=== PATIENT | female | born 1945 | race Two or more races ===

== ENCOUNTER 2017-04-15 18:52 | Emergency (ER) | payer OTHER ==
[2017-04-15 18:57] VITALS: BP 154/74; PULSE 120; TEMP 98.7; BMI 24.5
[2017-04-15] MEDS ORDERED: SODIUM CHLORIDE 1,000 ML IV STA (20:41)
--- NOTE | 2017-04-15 20:41 | PDOC ---
History of Present Illness - General Chief Complaint: Urinary Problem Stated Complaint: PAIN, ACUTE Time Seen by Provider: 04/15/17 19:15 Past History - Past Medical History Allergies/Adverse Reactions: Allergies Allergy/AdvReac Type Severity Reaction Status Date / Time aspirin AdvReac Verified 04/15/17 18:57 Home Medications: Ambulatory Orders Aspirin Coated [Ecotrin -] 81 mg PO DAILY 08/08/15 Fluticasone/Salmeterol [Advair 250-50 Diskus] 1 each IH BID 08/08/15 Glipizide [Glipizide Xl] 2.5 mg PO BID 08/08/15 Insulin Aspart [Novolog] 12 unit SQ TID 08/08/15 Insulin Detemir [Levemir Flextouch] 35 unit SQ HS 08/08/15 Linagliptin [Tradjenta] 5 mg PO DAILY 08/08/15 Lisinopril [Prinivil] 20 mg PO DAILY 08/08/15 Metformin HCl [Metformin HCl ER] 1,000 mg PO BID 08/08/15 Metoprolol Succinate [Toprol Xl -] 50 mg PO DAILY 08/08/15 Mirabegron [Myrbetriq] 50 mg PO DAILY 08/08/15 Montelukast Na [Singulair -] 10 mg PO HS 08/08/15 Hyndman-3 Fatty Acids [[place]man-3] 1,000 mg PO BID 08/08/15 Omeprazole [Prilosec (RX)] 40 mg PO DAILY PRN 08/08/15 Tiotropium [place] [Spiriva -] 1 inh PO DAILY 08/08/15 Anemia: No Asthma: Yes Cancer: No Cardiac Disorders: Yes CVA: No COPD: Yes CHF: No Dementia: No Diabetes: Yes GI Disorders: No Disorders: No HTN: Yes Hypercholesterolemia: Yes Liver Disease: No Suicide Attempt (Hx): No Seizures: No Thyroid Disease: No - Surgical History Abdominal Surgery: Yes Appendectomy: Yes Cardiac Surgery: Yes (CABG-2012) Cholecystectomy: No Lung Surgery: No Neurologic Surgery: No Orthopedic Surgery: No - Immunization History Td Vaccination: Yes Immunization Up to Date: Yes - Psycho/Social/Smoking Cessation Hx Suicidal Ideation: No Smoking Status: Yes Smoking History: Never smoked Have you smoked in the past 12 months: No Number of Cigarettes Smoked Daily: 5 If you are a former smoker, when did you quit?: 2YRS AGO Information on smoking cessation initiated: No Hx Alcohol Use: No Drug/Substance Use Hx: No Substance Use Type: None Hx Substance Use Treatment: No *Physical Exam - Vital Signs Last Vital Signs Temp Pulse Resp BP Pulse Ox 98.7 F 120 H 18 154/74 98 04/15/17 18:53 04/15/17 18:53 04/15/17 18:53 04/15/17 18:53 04/15/17 18:53
--- NOTE | 2017-04-15 20:41 | PDOC ---
Attending Attestation - Resident Resident Name: Bess Rain - ED Attending Attestation I have performed the following: I have examined & evaluated the patient, The case was reviewed & discussed with the resident, I agree w/resident's findings & plan, Exceptions are as noted - HPI HPI: 04/15/17 20:43 71 yo female p/w b/l cva tenderness - Physicial Exam PE: 04/16/17 01:58 agree with residents note - Medical Decision Making 04/15/17 23:51 ct scan revealed kidney stone,labs reviewed .pt has UTI,will be placed on antibiotics,also will be given her diabetic meds she has not taken yet today plan pt already has an appt with her PCP tomorrow
[2017-04-15 20:53] LABS: BASOPHIL 0.4 % (0-2.0); EOSINOPHIL 0.2 % (0-4.5); MCH 27.7 pg (25.7-33.7); MCHC 33.2 g/dl (32.0-36.0); MEAN CELL VOLUME 83.3 fl (80-96); MEAN PLT VOLUME 9.3 fl (7.5-11.1); NEUTROPHILS 75.7 % (42.8-82.8); PLATELET COUNT 424 K/MM3 (134-434); RDW 12.6 % (11.6-15.6); WHITE BLOOD COUNT 9.8 K/mm3 (4.0-10.0)
[2017-04-15 21:00] LABS: URINE APPEARANCE CLOUDY; URINE BILIRUBIN NEGATIVE (NEGATIVE); URINE BLOOD 3+ (NEGATIVE); URINE COLOR YELLOW; URINE GLUCOSE (UA) 3+ (NEGATIVE); URINE KETONE NEGATIVE (NEGATIVE); URINE UROBILINOGEN NEGATIVE mg/dL (0.2-1.0)
[2017-04-15 21:07] LABS: URINE LEUK ESTERASE 3+ (NEGATIVE); URINE NITRITE POSITIVE (NEGATIVE); URINE PROTEIN 2+ (NEGATIVE)
[2017-04-15 21:10] LABS: URINE RBC 45 /hpf (0-3); URINE WBC 951 /hpf (3-5)
--- NOTE | 2017-04-15 21:10 | PDOC ---
History of Present Illness - General History Source: Patient Exam Limitations: No Limitations - History of Present Illness Initial Comments: This is a 71 yo female with h/o IDDM (insulin and metformin), IN (3-vessel CABG in 2012), HTN, HLD, COPD, and appendectomy who presents c/o flank pain. The pain started gradually 3 days ago in the left>right back, feels sharp, radiates to the left abdomen, and has been worsening since the onset up to 9/10 pain now. She denies any factors that make the pain better or worse, and has taken only Tylenol for the pain (last dose this morning). She has additionally been having burning on urination and two episodes of blood in the urine yesterday. She notes recent chills, decreased appetite, nausea, dry heaves, and diarrhea. She denies any rashes. She has never had these symptoms before. She also denies any tobacco or drug use, and notes very occasional alcohol use. She notes taking her diabetes medications adherently and occasionally checks her blood sugars at home. The last time she checked it was yesterday, and she states it was about 550. <Bess Rain - Last Filed: 04/15/17 22:39> <Kerry Vegas - Last Filed: 04/16/17 00:21> - General Chief Complaint: Urinary Problem Stated Complaint: PAIN, ACUTE Time Seen by Provider: 04/15/17 19:15 Past History - Past Medical History Anemia: No Asthma: Yes Cancer: No Cardiac Disorders: Yes CVA: No COPD: Yes CHF: No Dementia: No Diabetes: Yes GI Disorders: No Disorders: No HTN: Yes Hypercholesterolemia: Yes Liver Disease: No Suicide Attempt (Hx): No Seizures: No Thyroid Disease: No - Surgical History Abdominal Surgery: Yes Appendectomy: Yes Cardiac Surgery: Yes (CABG-2013) Cholecystectomy: No Lung Surgery: No Neurologic Surgery: No Orthopedic Surgery: No - Immunization History Td Vaccination: Yes Immunization Up to Date: Yes - Psycho/Social/Smoking Cessation Hx Suicidal Ideation: No Smoking Status: Yes Smoking History: Former smoker Have you smoked in the past 12 months: No Number of Cigarettes Smoked Daily: 5 If you are a former smoker, when did you quit?: 2YRS AGO Information on smoking cessation initiated: No Hx Alcohol Use: No Drug/Substance Use Hx: No Substance Use Type: None Hx Substance Use Treatment: No <Bess Rain - Last Filed: 04/15/17 22:39> <Salvatore Vegasa Lindsay - Last Filed: 04/16/17 00:21> - Past Medical History Allergies/Adverse Reactions: Allergies Allergy/AdvReac Type Severity Reaction Status Date / Time aspirin AdvReac Verified 04/15/17 18:57 Home Medications: Ambulatory Orders Glipizide [Glipizide Xl] 2.5 mg PO BID 08/08/15 Lisinopril [Prinivil] 20 mg PO DAILY 08/08/15 Metformin HCl [Metformin HCl ER] 1,000 mg PO BID 08/08/15 Metoprolol Succinate [Toprol Xl -] 50 mg PO DAILY 08/08/15 Montelukast Na [Singulair -] 10 mg PO HS 08/08/15 Proventil HFA Inhaler - 04/15/17 Tiotropium [place] [Spiriva] 04/15/17 Cephalexin [Keflex] 500 mg PO QID #30 capsule 04/16/17 Cephalexin [Keflex] 500 mg PO QID 7 Days 04/16/17 Oxycodone HCl/Acetaminophen [Percocet 5-325 mg Tablet] 1 tab PO Q6H PRN #4 tablet MDD 4 04/16/17 Tamsulosin HCl [Flomax] 0.4 mg PO DAILY #7 cap.er.24h 04/16/17 Review of Systems - Review of Systems Constitutional: Yes: Loss of Appetite. No: Unexplained wgt Loss HEENTM: No: Nose Congestion, Throat Pain Respiratory: Yes: Cough (chronic). No: Shortness of Breath Cardiac (ROS): No: Chest Pain, Palpitations ABD/GI: Yes: Diarrhea, Nausea, Other (dry heaves). No: Constipated : Yes: Burning, Dysuria, Flank Pain, Hematuria Musculoskeletal: No: Muscle Weakness, Neck Pain Integumentary: No: Bruising, Rash Neurological: No: Headache, Numbness, Tingling, Weakness, Dizziness Endocrine: No: Unexplained Weight Gain, Unexplained Weight Loss <Bess Rain - Last Filed: 04/15/17 22:39> *Physical Exam - Vital Signs Last Vital Signs Temp Pulse Resp BP Pulse Ox 98.7 F 120 H 18 154/74 98 04/15/17 18:53 04/15/17 18:53 04/15/17 18:53 04/15/17 18:53 04/15/17 18:53 - Physical Exam General Appearance: Yes: Nourished, Appropriately Dressed, Mild Distress, Other (pleasant older woman) HEENT: positive: EOMI, Normal Voice, Hearing Grossly Normal. negative: Scleral Icterus (R), Scleral Icterus (L), Nasal Congestion Neck: positive: Trachea midline, Supple. negative: Tender, Rigid Respiratory/Chest: positive: Lungs Clear, Normal Breath Sounds. negative: Respiratory Distress, Crackles, Rhonchi, Stridor, Wheezing Cardiovascular: positive: Regular Rhythm, Tachycardia, Other (midline sternotomy scar) Gastrointestinal/Abdominal: positive: Normal Bowel Sounds, Tender (mild diffuse tenderness to palpation), Soft, Distended. negative: Organomegaly, Pulsatile Mass, Guarding, Rebound Musculoskeletal: positive: Normal Inspection, CVA Tenderness (left>right). negative: Decreased Range of Motion, Vertebral Tenderness Extremity: positive: Normal Capillary Refill, Normal Inspection, Normal Range of Motion. negative: Tender, Cyanosis Integumentary: positive: Normal Color, Dry, Warm. negative: Erythema, Rash, Bruising Neurologic: positive: business liaison manager II-XII NML intact (grossly), Fully Oriented, Alert, Normal Mood/Affect, Normal Response, Motor Strength 5/5 <Bess Rain - Last Filed: 04/15/17 22:39> - Vital Signs Last Vital Signs Temp Pulse Resp BP Pulse Ox 98.7 F 120 H 18 154/74 98 04/15/17 18:53 04/15/17 18:53 04/15/17 18:53 04/15/17 18:53 04/15/17 18:53 <Kerry Vegas - Last Filed: 04/16/17 00:21> Heart Score/ECG Review - History History: Slightly suspicious - Electrocardiogram EKG: Normal - Age Age: >/= 65 - Risk Factors Risk Factors Heart Score: Yes Hx Hypercholesterolemia, Yes Hx Hypertension, Yes Hx Diabetes Based on the list above the patient has:: >/=3 risk factors or Hx atherosclerotic disease <Bess Rain - Last Filed: 04/15/17 22:39> ED Treatment Course - LABORATORY CBC & Chemistry Diagram: 04/15/17 20:45 04/15/17 20:45 - ADDITIONAL ORDERS Additional order review: 04/15/17 20:45 RBC 4.63 MCV 83.3 MCHC 33.2 RDW 12.6 MPV 9.3 Neutrophils % 75.7 D Lymphocytes % 16.2 D Monocytes % 7.5 Eosinophils % 0.2 D Basophils % 0.4 <Bess Rain - Last Filed: 04/15/17 22:39> - LABORATORY CBC & Chemistry Diagram: 04/15/17 20:45 04/15/17 20:45 - ADDITIONAL ORDERS Additional order review: Laboratory Results 04/16/17 04/15/17 04/15/17 00:02 21:30 20:45 Sodium Potassium Chloride Carbon Dioxide Anion Gap BUN Creatinine Creat Clearance w eGFR POC Glucometer > 400 Random Glucose Calcium Total Bilirubin AST ALT Alkaline Phosphatase Creatine Kinase Troponin I Total Protein Albumin Lipase 302 Urine Color Urine Appearance Urine pH Ur Specific [place] Urine Protein Urine Glucose (UA) Urine Ketones Urine Blood Urine Nitrite Urine Bilirubin Urine Urobilinogen Ur Leukocyte Esterase Urine RBC Urine WBC Ur Epithelial Cells Urine Crystals Urine Bacteria Acetone, Qual Negative L 04/15/17 04/15/17 04/15/17 20:45 20:45 20:45 Sodium 129 L Potassium 5.1 Chloride 94 L Carbon Dioxide 26 Anion Gap 9 BUN 17 Creatinine 1.3 H Creat Clearance w eGFR 40.49 POC Glucometer Random Glucose 484 H* D Calcium 10.5 H Total Bilirubin 0.5 D AST 6 L D ALT 15 D Alkaline Phosphatase 180 H D Creatine Kinase 55 Troponin I < 0.02 Total Protein 8.5 H Albumin 4.3 Lipase Urine Color Yellow Urine Appearance Cloudy Urine pH 5.0 Ur Specific [place] 1.010 Urine Protein 2+ H D Urine Glucose (UA) 3+ H Urine Ketones Negative Urine Blood 3+ H Urine Nitrite Positive D Urine Bilirubin Negative Urine Urobilinogen Negative Ur Leukocyte Esterase 3+ H D Urine RBC 45 Urine WBC 951 Ur Epithelial Cells 1 Urine Crystals Rare Urine Bacteria Many Acetone, Qual 04/16/17 04/15/17 00:02 20:45 RBC 4.63 MCV 83.3 MCHC 33.2 RDW 12.6 MPV 9.3 Neutrophils % 75.7 D Lymphocytes % 16.2 D Monocytes % 7.5 Eosinophils % 0.2 D Basophils % 0.4 POC Glucometer > 400 - Medications Given in the ED: ED Medications Discontinued Medications Generic Name Dose Route Start Last Admin Trade Name Dayday PRN Reason Stop Dose Admin Cephalexin HCl 500 mg 04/15/17 23:48 04/16/17 00:04 Keflex - PO 04/15/17 23:49 500 mg ONCE ONE Administration Sodium Chloride 1,000 mls @ 1,000 mls/hr 04/15/17 20:41 04/15/17 20:53 Normal Saline - IV 04/15/17 21:40 1,000 mls/hr ASDIR STA Administration Morphine Sulfate 2 mg 04/15/17 21:19 04/15/17 21:41 Morphine Injection - IVPUSH 04/15/17 21:20 2 mg ONCE ONE Administration Tamsulosin HCl 0.4 mg 04/15/17 23:48 04/16/17 00:04 Flomax - PO 04/15/17 23:49 0.4 mg ONCE ONE Administration <Kerry Vegas - Last Filed: 04/16/17 00:21> Medical Decision Making - Medical Decision Making 71 yo female with h/o IDDM, [place] with 3-vessel CABG, HTN, HLD, COPD, appendectomy , pelvic sling ~8 months ago. P/W L>R flank pain radiating to abdomen, also dysuria, nausea, dry heaves, chills. Exam with L>R CVA tenderness and diffuse abdominal tenderness, no peritoneal signs DDX includes UTI, pyelonephritis, renal stone, diverticulitis, gastroenteritis. Unlikely to be aortic dissection or AAA expansion. Ordered are UA+cx, CBC, CMP, lipase, acetone, CT abdomen/pelvis. Morphine ordered for pain control. 04/15/17 22:07 UA shows significant e/o infection. CBC without WBC elevation. CMP with BG 484, Cr 1.3 which was this high at a prior visit, alk phos 180. Lipase and acetone negative. <Bess Rain - Last Filed: 04/15/17 22:39> *DC/Admit/Observation/Transfer - Discharge Dispostion Admit: No <Bess Rain - Last Filed: 04/15/17 22:39> <Kerry Vegas - Last Filed: 04/16/17 00:21> Diagnosis at time of Disposition: Renal stone Urinary tract infection Qualifiers: Urinary tract infection type: acute cystitis Hematuria presence: with hematuria Qualified Code(s): N30.01 - Acute cystitis with hematuria - Discharge Dispostion Disposition: HOME Condition at time of disposition: Stable - Prescriptions Prescriptions: Tamsulosin HCl [Flomax] 0.4 mg PO DAILY #7 cap.er.24h Cephalexin [Keflex] 500 mg PO QID 7 Days Cephalexin [Keflex] 500 mg PO QID #30 capsule Oxycodone HCl/Acetaminophen [Percocet 5-325 mg Tablet] 1 tab PO Q6H PRN #4 tablet MDD 4 PRN Reason: Severe Pain - Referrals Referrals: Nahomi Carter MD [Primary Care Provider] - - Patient Instructions Printed Discharge Instructions: DI for Urinary Tract Infection (UTI) Additional Instructions: Morales visto en la rigoberto emergencia por dolor de abdomino y espalda. El dolor se mejoro con morphina aqui en el departamento. Hicemos unos laboratorios de marichuy y orina, y los resultados dicen que tiene tim infeccion de la orina. Por favor marie las pastillas antibioticas. Si tiene dolor, por favor marie Tylenol. Por favor vayase a landen chirinos doctor primario manana, o regresa a la rigoberto emergencia si tiene fiebre, gordo vomita, sintomas peores, or nuevas sintomas.
[2017-04-15 21:11] LABS: URINE BACTERIA MANY /hpf (NONE SEEN)
[2017-04-15] MEDS ORDERED: morphine CARPU-JECT 4 MG/1 ML DISP.SYRIN IVPUSH ONE (21:19)
[2017-04-15 21:27] LABS: CPK 55 IU/L (26-192); TROPONIN I < 0.02 ng/ml (0.00-0.05)
[2017-04-15 21:28] LABS: ALBUMIN 4.3 g/dl (3.4-5.0); ANION GAP 9 (8-16); BILIRUBIN,TOTAL 0.5 mg/dL (0.2-1.0); CALCIUM 10.5 mg/dL (8.5-10.1); CO2 26 mmol/L (21-32); CREATININE 1.3 mg/dL (0.55-1.02); SGOT/AST 6 U/L (15-37); SGPT/ALT 15 U/L (12-78); TOT PROT 8.5 g/dl (6.4-8.2)
[2017-04-15 21:29] LABS: ALK PHOS 180 U/L (45-117)
[2017-04-15 21:30] LABS: GLUCOSE,RANDOM 484 mg/dL (74-106)
[2017-04-15] MEDS ORDERED: morphine CARPU-JECT 4 MG/1 ML DISP.SYRIN ONE (21:39)
[2017-04-15] MEDS ORDERED: TAMSULOSIN HCL 0.4 MG CAP.ER.24H (FP) PO ONE (23:48)
[2017-04-15] MEDS ORDERED: CEPHALEXIN MONOHYDRATE 500 MG CAPSULE (UD) PO ONE (23:48)
[2017-04-16] MEDS ORDERED: CEPHALEXIN MONOHYDRATE 250 MG CAPSULE (FP) ONE (00:01)
[2017-04-16] MEDS ORDERED: TAMSULOSIN HCL 0.4 MG CAP.ER.24H (FP) ONE (00:02)
--- NOTE | 2017-04-16 13:51 | EKG ---
Test Reason : Blood Pressure : / mmHG Vent. Rate : 111 BPM Atrial Rate : 111 BPM P-R Int : 122 ms QRS Dur : 070 ms QT Int : 304 ms P-R-T Axes : 064 020 081 degrees QTc Int : 413 ms SINUS TACHYCARDIA LEFT ATRIAL ENLARGEMENT WHEN COMPARED WITH ECG OF 24-MAY-2015 23:46, NO SIGNIFICANT CHANGE WAS FOUND REPEAT EKG IF CLINICALLY INDICATED Confirmed by SANTOS NDIAYE MD ([id number]) on 04/16/2017 1:51:10 PM Referred By: Confirmed By:SANTOS NDIAYE MD
== END 2017-04-16 00:35 | disposition home or self-care (01) ==
LOC: JER 18:52
PROC: 3E033NZ Introduction of Analgesics, Hypnotics, Sedatives into Peripheral Vein, Percutaneous Approach (ICD-10-PCS; principal; 2017-04-15)
PROC: 3E0337Z Introduction of Electrolytic and Water Balance Substance into Peripheral Vein, Percutaneous Approach (ICD-10-PCS; 2017-04-15)
DX: N20.0 Calculus of kidney (principal); N30.01 Acute cystitis with hematuria; I10 Essential (primary) hypertension; I25.2 Old myocardial infarction; E78.5 Hyperlipidemia, unspecified; E11.9 Type 2 diabetes mellitus without complications; J44.9 Chronic obstructive pulmonary disease, unspecified; Z79.4 Long term (current) use of insulin; Z79.84 Long term (current) use of oral hypoglycemic drugs; Z95.1 Presence of aortocoronary bypass graft; Z87.891 Personal history of nicotine dependence
CPT/HCPCS: 36415; 74176-TC; 80053; 81003; 81015; 82009; 83690; 84484; 85025; 87086; 87186; 93005; 93010; 96361; 96374; 99282-25

== ENCOUNTER 2017-11-05 09:57 | Emergency (ER) | payer OTHER ==
[2017-11-05 10:03] VITALS: BP 153/72; PULSE 90; TEMP 98.4; BMI 27.6
[2017-11-05] MEDS ORDERED: SULFAMETHOXAZOLE/TRIMETHOPRIM 800MG/160MG D.S. TABLET PO ONE (11:02)
--- NOTE | 2017-11-05 11:03 | PDOC ---
History of Present Illness - General Chief Complaint: Abscess Boil Stated Complaint: ABSCESS BOIL (BACK PROBLEM) Time Seen by Provider: 11/05/17 10:57 History Source: Patient Exam Limitations: No Limitations - History of Present Illness Initial Comments: 11/05/17 10:57 Patient states had onset of swelling and tender lesion to her right upper back that started a few days ago. States multiple family members suffer from MRSA lesions but she has never had an incident herself. Timing/Duration: reports: getting worse Severity: Yes: mild, moderate Location: reports: torso Respiratory Risk Factors: reports: no cause identified Past History - Travel Traveled outside of the country in the last 30 days: No Close contact w/someone who was outside of country & ill: No - Past Medical History Allergies/Adverse Reactions: Allergies Allergy/AdvReac Type Severity Reaction Status Date / Time milk Allergy Verified 11/05/17 10:03 aspirin AdvReac Verified 11/05/17 10:00 Home Medications: Ambulatory Orders Glipizide [Glipizide Xl] 2.5 mg PO BID 08/08/15 Lisinopril [Prinivil] 20 mg PO DAILY 08/08/15 Metformin HCl [Metformin HCl ER] 1,000 mg PO BID 08/08/15 Metoprolol Succinate [Toprol Xl -] 50 mg PO DAILY 08/08/15 Montelukast Na [Singulair -] 10 mg PO HS 08/08/15 Tiotropium [place] [Spiriva] 04/15/17 Chlorhexidine Gluconate [Hibiclens For Decolonization -] 1 applic TP DAILY #1 bottle 11/05/17 Cilostazol 100 mg PO ASDIR 11/05/17 Icosapent Ethyl [Vascepa] 16 gm PO 11/05/17 Insulin Lispro [Humalog] 100 unit SQ 11/05/17 Sulfamethoxazole/Trimethoprim [Bactrim *Ds*] 1 each PO BID #14 tablet 11/05/17 Valsartan [Diovan] 160 mg PO DAILY 11/05/17 Anemia: No Asthma: Yes Cancer: No Cardiac Disorders: Yes (CAD) CVA: No COPD: Yes CHF: No Dementia: No Diabetes: Yes GI Disorders: No Disorders: No HTN: Yes Hypercholesterolemia: Yes Liver Disease: No Seizures: No Thyroid Disease: No - Surgical History Abdominal Surgery: Yes (OVARY REMOVED, SBO) Appendectomy: Yes Cardiac Surgery: Yes (CABG-2013) Cholecystectomy: No Lung Surgery: No Neurologic Surgery: No Orthopedic Surgery: No - Immunization History Td Vaccination: Yes Immunization Up to Date: Yes - Suicide/Smoking/Psychosocial Hx Smoking Status: Yes Smoking History: Former smoker Have you smoked in the past 12 months: No Number of Cigarettes Smoked Daily: 5 If you are a former smoker, when did you quit?: 2YRS AGO Information on smoking cessation initiated: No Hx Alcohol Use: No Drug/Substance Use Hx: No Substance Use Type: None Hx Substance Use Treatment: No Review of Systems - Review of Systems Able to Perform ROS?: Yes Is the patient limited Gambian proficient: Yes Constitutional: Yes: Symptoms Reported, See HPI, Malaise HEENTM: No: Symptoms Reported Respiratory: No: Symptoms reported Musculoskeletal: Yes: See HPI. No: Symptoms Reported, Back Pain Integumentary: Yes: Symptoms Reported, See HPI, Lesions All Other Systems: Reviewed and Negative *Physical Exam - Vital Signs Last Vital Signs Temp Pulse Resp BP Pulse Ox 98.4 F 90 18 153/72 100 11/05/17 10:01 11/05/17 10:01 11/05/17 10:01 11/05/17 10:01 11/05/17 10:01 - Physical Exam General Appearance: Yes: Nourished, Appropriately Dressed, Apparent Distress HEENT: positive: KALE, Normal ENT Inspection, TMs Normal, Pharynx Normal Neck: positive: Supple, Lymphadenopathy (R), Lymphadenopathy (L) Respiratory/Chest: positive: Lungs Clear, Normal Breath Sounds Gastrointestinal/Abdominal: positive: Soft Integumentary: positive: Other (4 cm lesion midpoint right back scapula that is tender and fluctuant) Neurologic: positive: mill attendant II-XII NML intact, Fully Oriented, Alert, Normal Mood/ Affect, Normal Response, Motor Strength 5/5 Procedures - Incision and Drainage I&D Site: Right: Torso Anesthesia: 1% Lidocaine Blade Size: 11 Iodinated Packin/4 in Complications: none Dressing: Yes Progress Note - Progress Note Progress Note: Abscess incised and drained, we'll start on Bactrim *DC/Admit/Observation/Transfer Diagnosis at time of Disposition: Abscess - Discharge Dispostion Disposition: HOME Condition at time of disposition: Stable Admit: No - Prescriptions Prescriptions: Chlorhexidine Gluconate [Hibiclens For Decolonization -] 1 applic TP DAILY #1 bottle Sulfamethoxazole/Trimethoprim [Bactrim *Ds*] 1 each PO BID #14 tablet - Referrals Referrals: Nahomi Carter MD [Primary Care Provider] - - Patient Instructions Printed Discharge Instructions: DI for Incision and Drainage of a Skin Abscess Additional Instructions: Mefoxin resistant Staphylococcus aureus is a normal skin bacteria and is mutated to be resistant to penicillin type drugs. The wounds may be draining and there for contagious to other family members. Vigorous handwashing and avoidance of skin contact of draining lesions it is important . All family members Will need to be protected and perform thorough cleaning of linens /towels/clothing. To decontaminate household: Soak in bath; in one half cup of bleach in 1 full tub of water 2 times a week x3 weeks With own scrub Nylon use chlorohexidine soap twice a week to decontaminate skin Clean tub /toilet with bleach wipes after each use Do not use same linens/avoid contact until lesions are healed Followup with private physician/title clerk automobile Take all of Bactrim as directed May use ibuprofen or Tylenol for pain relief Followup with PMD in one week if no resolution Make appointment with title clerk automobile for evaluation when possible - Post Discharge Activity
[2017-11-05] MEDS ORDERED: SULFAMETHOXAZOLE/TRIMETHOPRIM 800MG/160MG D.S. TABLET ONE (11:22)
== END 2017-11-05 11:39 | disposition home or self-care (01) ==
LOC: JERFT 09:57
PROC: 0J970ZZ Drainage of Back Subcutaneous Tissue and Fascia, Open Approach (ICD-10-PCS; principal; 2017-11-05)
DX: L02.212 Cutaneous abscess of back [any part, except buttock and flank] (principal); I25.10 Atherosclerotic heart disease of native coronary artery without angina pectoris; I10 Essential (primary) hypertension; Z95.1 Presence of aortocoronary bypass graft; Z87.891 Personal history of nicotine dependence; J45.909 Unspecified asthma, uncomplicated; J44.9 Chronic obstructive pulmonary disease, unspecified; E78.00 Pure hypercholesterolemia, unspecified; E11.9 Type 2 diabetes mellitus without complications; Z79.84 Long term (current) use of oral hypoglycemic drugs
CPT/HCPCS: 10060; 87070; 87077; 87205; 99281-25

== ENCOUNTER 2018-08-15 11:07 | Observation (INO) | payer OTHER ==
[2018-08-15 11:17] VITALS: BMI 26.4
--- NOTE | 2018-08-15 12:10 | PDOC ---
History of Present Illness - General Chief Complaint: Pain Stated Complaint: CHEST PAIN History Source: Patient Exam Limitations: No Limitations - History of Present Illness Initial Comments: 08/15/18 15:10 73 yo F with a hx of CAD s/p CABG 2012 (revision of sternotomy 2017), DM, COPD, HLD, and HTN presents to the emergency department with chest pain. She states the chest pain has been ongoing for 3 weeks but acutely worsened yesterday. Located on the right chest wall, 10/10, sharp, worsens with deep breaths and coughs, constant, and is non-radiating. Per the patient, she has associative nausea, SOB, and back pain but denies diaphoresis, worsening pain with exertion. She is followed by Dr. Haas. She denies anticoagulation use but endorses aspirin 81 mg daily. Social: Denies tobacco, alcohol, and substance abuse Past History - Past Medical History Allergies/Adverse Reactions: Allergies Allergy/AdvReac Type Severity Reaction Status Date / Time milk Allergy Verified 08/15/18 11:13 aspirin AdvReac Verified 08/15/18 11:13 Home Medications: Ambulatory Orders Glipizide [Glipizide Xl] 2.5 mg PO BID 08/08/15 Lisinopril [Prinivil] 20 mg PO DAILY 08/08/15 Metformin HCl [Metformin HCl ER] 1,000 mg PO BID 08/08/15 Metoprolol Succinate [Toprol Xl -] 50 mg PO DAILY 08/08/15 Montelukast Na [Singulair -] 10 mg PO HS 08/08/15 Tiotropium [place] [Spiriva] 18 mcg PO DAILY 04/15/17 Cilostazol 100 mg PO ASDIR 11/05/17 Sulfamethoxazole/Trimethoprim [Bactrim *Ds*] 1 each PO BID #14 tablet 11/05/17 Valsartan [Diovan] 160 mg PO DAILY 11/05/17 Anemia: No Asthma: Yes Cancer: No Cardiac Disorders: Yes (CAD) CVA: No COPD: Yes CHF: No Dementia: No Diabetes: Yes GI Disorders: No Disorders: No HTN: Yes Hypercholesterolemia: Yes Liver Disease: No Seizures: No Thyroid Disease: No - Surgical History Abdominal Surgery: Yes (OVARY REMOVED, SBO) Appendectomy: Yes Cardiac Surgery: Yes (CABG-2012) Cholecystectomy: No Lung Surgery: No Neurologic Surgery: No Orthopedic Surgery: No - Immunization History Td Vaccination: Yes Immunization Up to Date: Yes - Suicide/Smoking/Psychosocial Hx Smoking Status: Yes Smoking History: Never smoked Have you smoked in the past 12 months: No Number of Cigarettes Smoked Daily: 5 If you are a former smoker, when did you quit?: 2YRS AGO Hx Alcohol Use: No Drug/Substance Use Hx: No Substance Use Type: None Hx Substance Use Treatment: No *Physical Exam - Vital Signs Last Vital Signs Temp Pulse Resp BP Pulse Ox 98.2 F 85 18 143/68 100 08/15/18 11:15 08/15/18 11:15 08/15/18 11:15 08/15/18 11:15 08/15/18 11:15 Moderate Sedation - Procedure Monitoring Vital Signs: Procedure Monitoring Vital Signs Temperature 98.2 F 08/15/18 11:15 Pulse Rate 85 08/15/18 11:15 Respiratory Rate 18 08/15/18 11:15 Blood Pressure 143/68 08/15/18 11:15 O2 Sat by Pulse Oximetry (%) 100 08/15/18 11:15 ED Treatment Course - LABORATORY CBC & Chemistry Diagram: 08/15/18 14:20 08/15/18 14:20 *DC/Admit/Observation/Transfer - Referrals Referrals: Nahomi Carter MD [Primary Care Provider] - - Patient Instructions - Post Discharge Activity
--- NOTE | 2018-08-15 12:39 | PDOC ---
Attending Attestation - Resident Resident Name: ReedNixon - ED Attending Attestation I have performed the following: I have examined & evaluated the patient, The case was reviewed & discussed with the resident, I agree w/resident's findings & plan, Exceptions are as noted - HPI HPI: 08/15/18 12:34 73 yo F wit h/o cad, htn hld cabg ( 2 yrs ago) here today with c/o pain right sided chest for 3 weeks. intermittent. has also had a cough, nonproductive. does have post tussive emesis yesterday. no f/c no leg swelling. here today because pain is more severe and more frequent . no f/c no leg swelling. no other comlaints. - Physicial Exam PE: 08/15/18 12:36 awake alert lungs with faint crackles left side, no wheezing. heart no appreciated murmurs r or g. abd soft nt nd. ext wwp no edema. no calf tenderness. 2 + dp/ pt pulses bilaterally. - Medical Decision Making 08/15/18 12:38 73 yo F h/o copd cabg ht hld here with c/o chest pain. differential acs, pna, effusion chf copd exacerbation. plna cxr ek labs trop nitro for ongoing chest pain. pt has had 2 ekg in dept, unremarkable. nonspecific findings I, AVL , v5, v6. 08/15/18 13:07 pt states she is not allergic to aspirin, take every day took baby asa earlier today. just occasionally upsets her stomach. Heart Score/ECG Review #1 ECG reviewed & interpreted by me at: 12:39 General ECG Interpretation: Sinus Rhythm, Normal Rate, Normal Intervals, No acute ischemic changes Compared to previous ECG there are: Other (TWI I, AVL)
[2018-08-15] MEDS ORDERED: NITROGLYCERIN SUBLINGUAL 1/150 0.4 MG TAB SL ONE (13:05)
[2018-08-15] MEDS ORDERED: ASPIRIN 81 MG CHEWABLE TABLETS PO ONE (13:06)
[2018-08-15] MEDS ORDERED: ASPIRIN COATED 81 MG TABLET.EC ONE (14:27)
[2018-08-15] MEDS ORDERED: NITROGLYCERIN SUBLINGUAL 1/150 0.4 MG TAB ONE (14:28)
[2018-08-15 14:36] LABS: BASO % 0.4 % (0-2.0); HEMATOCRIT 36.5 % (32.4-45.2); HEMOGLOBIN 11.7 GM/dL (10.7-15.3); LYMPH % 34.3 % (8-40); MCH 27.2 pg (25.7-33.7); MEAN CELL VOLUME 84.9 fl (80-96); MEAN PLT VOLUME 8.6 fl (7.5-11.1); MONO % 6.7 % (3.8-10.2); NEUT % 56.6 % (42.8-82.8); PLATELET COUNT 367 K/MM3 (134-434); RDW 13.6 % (11.6-15.6)
[2018-08-15 14:51] LABS: ALBUMIN 4.2 g/dl (3.4-5.0); ALK PHOS 91 U/L (45-117); ANION GAP 7 MMOL/L (8-16); BILIRUBIN,TOTAL 0.4 mg/dL (0.2-1); BLOOD UREA NITROGEN 31 mg/dL (7-18); CALCIUM 9.6 mg/dL (8.5-10.1); CHLORIDE 107 mmol/L (98-107); CO2 27 mmol/L (21-32); CREATININE 1.4 mg/dL (0.55-1.3); GLUCOSE,RANDOM 283 mg/dL (74-106); POTASSIUM 5.4 mmol/L (3.5-5.1); SGOT/AST 12 U/L (15-37); SGPT/ALT 21 U/L (13-61); SODIUM 140 mmol/L (136-145); TOT PROT 7.9 g/dl (6.4-8.2)
[2018-08-15 15:14] LABS: INR 1.09 (0.83-1.09); PROTHROMBIN TIME (PATIENT) 12.9 SEC (9.7-13.0)
[2018-08-15 15:17] LABS: ACTIVATED PTT 25.1 SECONDS (25.2-36.5)
[2018-08-15] MEDS ORDERED: CILOSTAZOL 100 MG TABLET PO SCH (16:30)
[2018-08-15] MEDS ORDERED: SODIUM CHLORIDE 1,000 ML IV SCH ×2 (16:30→17:30)
[2018-08-15] MEDS ORDERED: ACETAMINOPHEN 325 MG TABLET (FP) PO SCH (16:30)
--- NOTE | 2018-08-15 16:31 | HP ---
CHIEF COMPLAINT:chest pain with breathing. PCP: Television Announcer: Dr. Haas. HISTORY OF PRESENT ILLNESS: 73 yo F with 3 day history of worsening chest pain. She describes intermittent right chest wall pain made worse with deep inspiration. No alleviating factors. Aggravated by palpation, movement and deep inspiration. Pain is not associated with activity or diaphoresis. After CABG in 2012 she had chronic cough with CARMEN and had problems with sternotomy she went this summer for revision. Since that time this pain has been presents but has gotten acutely worse in past few days as cough had returned. She blames cough on post nasal drip that is chronic. She follow with Dr. Haas as outpatient. Last seen one month prior and no acute issues. She denies SANCHEZ, SOB, abdominal pain, fever, chills, nausea or vomiting. No recent illness. ER course was notable for: (1)ASA given (2)EKG shows NSR with no st or t wave abnormalities (3) Recent Travel:denies PAST MEDICAL HISTORY:HTN, HLD, NIDDM, CAD PAST SURGICAL HISTORY:CABG (2012) , sternotomy revision (march 2018) , Social History: Smoking:quit 2012 Alcohol:denies Drugs: denies Family History: father(RIVERA) of trauma Allergies milk Allergy (Verified 08/15/18 11:13) aspirin Adverse Reaction (Verified 08/15/18 11:13) UPSET STOMACH HOME MEDICATIONS: Home Medications Medication Instructions Recorded Glipizide [Glipizide Xl] 2.5 mg PO BID 08/08/15 Lisinopril [Prinivil] 20 mg PO DAILY 08/08/15 Metformin HCl [Metformin HCl ER] 1,000 mg PO BID 08/08/15 Metoprolol Succinate [Toprol Xl -] 50 mg PO DAILY 08/08/15 Montelukast Na [Singulair -] 10 mg PO HS 08/08/15 Tiotropium [place] [Spiriva] 18 mcg PO DAILY 04/15/17 Cilostazol 100 mg PO ASDIR 11/05/17 Sulfamethoxazole/Trimethoprim 1 each PO BID #14 tablet 11/05/17 [Bactrim *Ds*] Valsartan [Diovan] 160 mg PO DAILY 11/05/17 REVIEW OF SYSTEMS CONSTITUTIONAL: Absent: fever, chills, diaphoresis, generalized weakness, malaise, loss of appetite, weight change HEENT: Absent: rhinorrhea, nasal congestion, throat pain, throat swelling, difficulty swallowing, mouth swelling, ear pain, eye pain, visual changes CARDIOVASCULAR: chest pain Absent: , syncope, palpitations, irregular heart rate, lightheadedness, peripheral edema RESPIRATORY: Absent: cough, shortness of breath, dyspnea with exertion, orthopnea, wheezing, stridor, hemoptysis GASTROINTESTINAL: Absent: abdominal pain, abdominal distension, nausea, vomiting, diarrhea, constipation, melena, hematochezia GENITOURINARY: Absent: dysuria, frequency, urgency, hesitancy, hematuria, flank pain, genital pain MUSCULOSKELETAL: Absent: myalgia, arthralgia, joint swelling, back pain, neck pain SKIN: Absent: rash, itching, pallor HEMATOLOGIC/IMMUNOLOGIC: Absent: easy bleeding, easy bruising, lymphadenopathy, frequent infections ENDOCRINE: Absent: unexplained weight gain, unexplained weight loss, heat intolerance, cold intolerance NEUROLOGIC: Absent: headache, focal weakness or paresthesias, dizziness, unsteady gait, seizure, mental status changes, bladder or bowel incontinence PSYCHIATRIC: Absent: anxiety, depression, suicidal or homicidal ideation, hallucinations. PHYSICAL EXAMINATION Vital Signs - 24 hr 08/15/18 08/15/18 08/15/18 11:15 14:10 15:02 Temperature 98.2 F 98.7 F Pulse Rate 85 Pulse Rate [ 62 Left Radial] Respiratory 18 16 Rate Blood Pressure 143/68 Blood Pressure 137/55 L [Right Arm] O2 Sat by Pulse 100 99 99 Oximetry (%) GENERAL: AAOx3, NAD HEAD:NCAT EYES: PERRLA, EOMI, sclera anicteric, conjunctiva clear. No lid lag. EARS, NOSE, THROAT: Moist mucous membranes. NECK: Supple without lymphadenopathy, JVD, or masses. LUNGS: Diminished BS bilaterally. No wheezes, and no crackles. No accessory muscle use. HEART:RRR, normal S1 and S2 2/6 [place] RSB. Right chest wall tenderness to palpation. ABDOMEN: Soft, NTND, NABS, no guarding, no rebound, no masses. No hepatomegaly or splenomegaly. MUSCULOSKELETAL: Normal range of motion at all joints. No bony deformities or tenderness. No CVA tenderness. UPPER EXTREMITIES: 2+ pulses, warm, well-perfused. No cyanosis. No clubbing. No peripheral edema. LOWER EXTREMITIES: 2+ pulses, warm, well-perfused. No calf tenderness. No peripheral edema. NEUROLOGICAL: Cranial nerves II-XII intact. Normal speech. no focal def. PSYCHIATRIC: Cooperative. Good eye contact. Appropriate mood and affect. SKIN: Warm, dry, normal turgor, no rashes or lesions noted, normal capillary refill. Laboratory Results - last 24 hr 08/15/18 08/15/18 08/15/18 14:15 14:20 14:20 WBC 7.0 RBC 4.30 Hgb 11.7 Hct 36.5 MCV 84.9 MCH 27.2 MCHC 32.0 RDW 13.6 Plt Count 367 MPV 8.6 Absolute Neuts (auto) 4.0 Neutrophils % 56.6 D Lymphocytes % 34.3 D Monocytes % 6.7 Eosinophils % 2.0 D Basophils % 0.4 Nucleated RBC % 0 PT with INR 12.90 INR 1.09 PTT (Actin FS) 25.1 L Sodium Potassium Chloride Carbon Dioxide Anion Gap BUN Creatinine Creat Clearance w eGFR Random Glucose Calcium Total Bilirubin AST ALT Alkaline Phosphatase Creatine Kinase Troponin I B-Natriuretic Peptide Total Protein Albumin Blood Type A POSITIVE Antibody Screen Negative 08/15/18 08/15/18 14:20 14:20 WBC RBC Hgb Hct MCV MCH MCHC RDW Plt Count MPV Absolute Neuts (auto) Neutrophils % Lymphocytes % Monocytes % Eosinophils % Basophils % Nucleated RBC % PT with INR INR PTT (Actin FS) Sodium 140 Potassium 5.4 H Chloride 107 Carbon Dioxide 27 Anion Gap 7 L BUN 31 H Creatinine 1.4 H Creat Clearance w eGFR 36.96 Random Glucose 283 H Calcium 9.6 Total Bilirubin 0.4 AST 12 L ALT 21 Alkaline Phosphatase 91 Creatine Kinase 104 Troponin I < 0.02 B-Natriuretic Peptide 327.0 H Total Protein 7.9 Albumin 4.2 Blood Type Antibody Screen ASSESSMENT/PLAN: Problem List - Problem (1) Chest pain Assessment/Plan: will r/o ACS but most likely MS as pain is reproducible with palpation. * Placed on observation to telemetry * Cardiology consult * Trend trops Q6H * Echo pending. * Repeat EKG in AM (2) DM2 (diabetes mellitus, type 2) Assessment/Plan: * ADA sodium controlled diet * BGM ACHS * ISS ACHS (3) HTN (hypertension) Assessment/Plan: ARB held for LACHELLE * Metoprolol Succinate (Toprol Xl -) 50 mg PO DAILY (4) HLD (hyperlipidemia) (5) CAD (coronary artery disease) Assessment/Plan: she endorses taking ASA * ACS work up pending. * Cardiology consulted/ (6) CKD (chronic kidney disease) stage 3, GFR 30-59 ml/min Assessment/Plan: ARB held * WIll repeat labs in AM Visit type - Emergency Visit Emergency Visit: Yes Care time: The patient presented to the Emergency Department on the above date and was hospitalized for further evaluation of their emergent condition. - New Patient This patient is new to me today: Yes Date on this admission: 08/15/18 - Critical Care Critical Care patient: No
[2018-08-15] MEDS: INSULIN SLIDING SCALE (NOVOLOG) 1 VIAL SQ SCH ×2 (17:25→22:02)
--- NOTE | 2018-08-15 17:32 | HP ---
Admitting History and Physical - Primary Care Physician PCP: Nahomi Carter - Admission Chief Complaint: Chest Pain History of Present Illness: Patient is a 73 yrs old F multiple medical Co-morbidities H/O HTN, PAD, Hypercholesterolemia, T2DM< CAD s/p CABG in 2013 need revision Sternotomy as sutures dehesnces after a bout of coughing , COPD, HTN, CKD stage 3 today present with sternal pain for past 3 wks after URTI episode worsened over past 2 days denies any radiation, pain s constant with local tenderness at suture site, no discharge no erythema or gap, no c/o fever chills, nausea, vomiting or diarrhea, no change in ET or exertion chest pain. History Source: Patient, Family Member - Past Medical History Cardiovascular: Yes: CAD, HTN, Hyperlipdemia Pulmonary: Yes: COPD Endocrine: Yes: Diabetes Insipidus - Past Surgical History Past Surgical History: Yes: CABG - Smoking History Smoking history: Never smoked Have you smoked in the past 12 months: No Aproximately how many cigarettes per day: 5 If you are a former smoker, when did you quit?: 2YRS AGO - Alcohol/Substance Use Hx Alcohol Use: No - Social History Usual Living Arrangement: Yes: With Child History of Recent Travel: No Home Medications - Allergies Allergies/Adverse Reactions: Allergies Allergy/AdvReac Type Severity Reaction Status Date / Time milk Allergy Verified 08/15/18 11:13 aspirin AdvReac Verified 08/15/18 11:13 - Home Medications Home Medications: Ambulatory Orders Glipizide [Glipizide Xl] 2.5 mg PO BID 08/08/15 Lisinopril [Prinivil] 20 mg PO DAILY 08/08/15 Metformin HCl [Metformin HCl ER] 1,000 mg PO BID 08/08/15 Metoprolol Succinate [Toprol Xl -] 50 mg PO DAILY 08/08/15 Montelukast Na [Singulair -] 10 mg PO HS 08/08/15 Tiotropium [place] [Spiriva] 18 mcg PO DAILY 04/15/17 Cilostazol 100 mg PO ASDIR 11/05/17 Sulfamethoxazole/Trimethoprim [Bactrim *Ds*] 1 each PO BID #14 tablet 11/05/17 Valsartan [Diovan] 160 mg PO DAILY 11/05/17 Family Disease History - Family Disease History Family History: Unremarkable Review of Systems - Review of Systems Constitutional: denies: Chills, Diaphoresis, Fever Eyes: denies: Blind Spots, Blurred Vision HENT: denies: Ear Pain Neck: denies: Decreased ROM, Lumps Cardiovascular: reports: Chest Pain. denies: Edema, Palpitations, Shortness of Breath Respiratory: reports: Cough. denies: Exercise Intolerance, Hemoptysis, Orthopnea, PND, SOB on Exertion Gastrointestinal: denies: Abdominal Pain, Bloating Genitourinary: denies: Discharge, Dysuria Musculoskeletal: denies: Back Pain, Crepitus, Decreased ROM Neurological: denies: Change in LOC, Change in Speech, Confusion Physical Examination Vital Signs: Vital Signs Temperature 98.7 F 08/15/18 14:10 Pulse Rate 62 08/15/18 14:10 Respiratory Rate 16 08/15/18 14:10 Blood Pressure 137/55 L 08/15/18 14:10 O2 Sat by Pulse Oximetry (%) 99 08/15/18 15:02 Elderly F not in distress HEENT: Mm moist, no anemia, PERRLA EOMI NECK: No JVD No Bruit CHEST: S/P Srenotomy local tenderness, healed scar no inflmatory changes, CTA B /L CVS: S1S2 R no m/g/r ABD: No distention, non tender Bs + EXT: No edema fet, no calf tenderness, Pulses + DRY CLEANING CHECKER: AOX3 non focal Labs: CBC, BMP 08/15/18 14:20 08/15/18 14:20 CBC,CMP WBC 7.0 K/mm3 (4.0-10.0) 08/15/18 14:20 RBC 4.30 M/mm3 (3.60-5.2) 08/15/18 14:20 Hgb 11.7 GM/dL (10.7-15.3) 08/15/18 14:20 Hct 36.5 % (32.4-45.2) 08/15/18 14:20 MCV 84.9 fl (80-96) 08/15/18 14:20 MCH 27.2 pg (25.7-33.7) 08/15/18 14:20 MCHC 32.0 g/dl (32.0-36.0) 08/15/18 14:20 RDW 13.6 % (11.6-15.6) 08/15/18 14:20 Plt Count 367 K/MM3 (134-434) 08/15/18 14:20 MPV 8.6 fl (7.5-11.1) 08/15/18 14:20 Absolute Neuts (auto) 4.0 K/mm3 (1.5-8.0) 08/15/18 14:20 Neutrophils % 56.6 % (42.8-82.8) D 08/15/18 14:20 Lymphocytes % 34.3 % (8-40) D 08/15/18 14:20 Monocytes % 6.7 % (3.8-10.2) 08/15/18 14:20 Eosinophils % 2.0 % (0-4.5) D 08/15/18 14:20 Basophils % 0.4 % (0-2.0) 08/15/18 14:20 Nucleated RBC % 0 % (0-0) 08/15/18 14:20 Sodium 140 mmol/L (136-145) 08/15/18 14:20 Potassium 5.4 mmol/L (3.5-5.1) H 08/15/18 14:20 Chloride 107 mmol/L (98-107) 08/15/18 14:20 Carbon Dioxide 27 mmol/L (21-32) 08/15/18 14:20 Anion Gap 7 MMOL/L (8-16) L 08/15/18 14:20 BUN 31 mg/dL (7-18) H 08/15/18 14:20 Creatinine 1.4 mg/dL (0.55-1.3) H 08/15/18 14:20 Creat Clearance w eGFR 36.96 (>60) 08/15/18 14:20 POC Glucometer 273.03504 UNITS (80-120) 08/15/18 17:16 Random Glucose 283 mg/dL (74-106) H 08/15/18 14:20 Calcium 9.6 mg/dL (8.5-10.1) 08/15/18 14:20 Total Bilirubin 0.4 mg/dL (0.2-1) 08/15/18 14:20 AST 12 U/L (15-37) L 08/15/18 14:20 ALT 21 U/L (13-61) 08/15/18 14:20 Alkaline Phosphatase 91 U/L (45-117) 08/15/18 14:20 Creatine Kinase 104 IU/L (26-192) 08/15/18 14:20 Troponin I < 0.02 ng/ml (0.00-0.05) 08/15/18 14:20 B-Natriuretic Peptide 327.0 pg/ml (5-125) H 08/15/18 14:20 Total Protein 7.9 g/dl (6.4-8.2) 08/15/18 14:20 Albumin 4.2 g/dl (3.4-5.0) 08/15/18 14:20 Imaging - Results X-ray: Report Reviewed (S/P CABG no infiltrates) EKG: Report Reviewed (HR 74 nsr QTC 428 T wave inv I avl no acute St T chnages) Problem List - Problems (1) Chest pain Assessment/Plan: Reproducuble Musculo skeletal , unlikely cardiac will cont Tylenol no 3 , serial CE, cont ASA and all home meds B Blockers and statin Code(s): R07.9 - CHEST PAIN, UNSPECIFIED Qualifiers: Chest pain type: chest pain on breathing Qualified Code(s): R07.1 - Chest pain on breathing; R07.81 - Pleurodynia (2) DM2 (diabetes mellitus, type 2) Assessment/Plan: Hold Metformin, Diabetic Diet cont Glpizide and Correction dose insulin Code(s): E11.9 - TYPE 2 DIABETES MELLITUS WITHOUT COMPLICATIONS Qualifiers: Diabetes mellitus usp insulin use: without usp use Diabetes mellitus complication status: with kidney complications Diabetes mellitus complication detail: with chronic kidney disease Chronic kidney disease stage : stage 3 (moderate) Qualified Code(s): E11.22 - Type 2 diabetes mellitus with diabetic chronic kidney disease; N18.3 - Chronic kidney disease, stage 3 ( moderate) (3) CKD (chronic kidney disease) stage 3, GFR 30-59 ml/min Assessment/Plan: Mild worsening due to dehydration IV hydration F/U BMP in am Code(s): N18.3 - CHRONIC KIDNEY DISEASE, STAGE 3 (MODERATE) (4) Hyperkalemia Assessment/Plan: Mild Kayxelate 15 gm PO F/U BMP at present no EKG changes Code(s): E87.5 - HYPERKALEMIA (5) HTN (hypertension) Assessment/Plan: Well controlled cont all home meds, hold Lisinopril Code(s): I10 - ESSENTIAL (PRIMARY) HYPERTENSION Qualifiers: Hypertension type: essential hypertension Qualified Code(s): I10 - Essential (primary) hypertension (6) Acute bronchitis Assessment/Plan: Z Pack F/U clinically Code(s): J20.9 - ACUTE BRONCHITIS, UNSPECIFIED (7) CAD (coronary artery disease) Assessment/Plan: S/P CABG no acute issue cont ASA, B Blockers Code(s): I25.10 - ATHSCL HEART DISEASE OF [place] CORONARY ARTERY W/O ANG PCTRS Qualifiers: Coronary Disease-Associated Artery/Lesion type: [place] artery [place] vs. transplanted heart: [place] heart Associated angina: angina presence unspecified Qualified Code(s): I25.10 - Atherosclerotic heart disease of [place] coronary artery without angina pectoris (8) COPD (chronic obstructive pulmonary disease) Assessment/Plan: Cont MDI Code(s): J44.9 - CHRONIC OBSTRUCTIVE PULMONARY DISEASE, UNSPECIFIED
[2018-08-15] MEDS ORDERED: ALBUTEROL SO4 2.5/IPRATROPIUM 0.5 INH SOL 3 ML VIAL.NEB. NEB PRN (17:43)
[2018-08-15] MEDS ORDERED: guaiFENesin/D-M SUGAR-FREE/ACLHOL-FREE 118 ML BOTTLE PO PRN (17:45)
[2018-08-15] MEDS: ACETAMINOPHEN WITH CODEINE 300MG/30MG TABLET PO SCH (18:52)
--- NOTE | 2018-08-15 19:00 | EKG ---
Test Reason : Blood Pressure : / mmHG Vent. Rate : 074 BPM Atrial Rate : 074 BPM P-R Int : 108 ms QRS Dur : 074 ms QT Int : 386 ms P-R-T Axes : 074 033 103 degrees QTc Int : 428 ms SINUS RHYTHM WITH SHORT MA POSSIBLE LEFT ATRIAL ENLARGEMENT NONSPECIFIC T WAVE ABNORMALITY ABNORMAL ECG WHEN COMPARED WITH ECG OF 15-APR-2017 21:13, VENT. RATE HAS DECREASED BY 37 BPM Confirmed by CHERRIE ESCOBEDO, TYLER ([id number]) on 08/15/2018 6:59:48 PM Referred By: Confirmed By:TYLER GRIER MD
[2018-08-15] MEDS ORDERED: INSULIN (NOVOLOG) ASPART 100 UNITS/ML 10ML VIAL ONE (21:42)
[2018-08-15] MEDS: HEPARIN NA (PORCINE) 5,000 UNITS/ML 1ML VIAL SQ SCH (22:03)
[2018-08-15] MEDS: MONTELUKAST NA 10 MG TABLET PO SCH ×2 (22:03→22:12)
[2018-08-16] MEDS: ACETAMINOPHEN WITH CODEINE 300MG/30MG TABLET PO SCH ×2 (02:32→09:16)
[2018-08-16] MEDS ORDERED: PT OWN MED DRAWER 7, Y5N ONE ×3 (06:27→12:42)
[2018-08-16] MEDS: INSULIN SLIDING SCALE (NOVOLOG) 1 VIAL SQ SCH ×2 (06:37→14:38)
[2018-08-16] MEDS: HEPARIN NA (PORCINE) 5,000 UNITS/ML 1ML VIAL SQ SCH ×2 (06:37→14:06)
[2018-08-16] MEDS ORDERED: glipiZIDE-XL 2.5 MG TAB.ER.24 PO SCH (07:00)
[2018-08-16 08:10] LABS: BASO % 0.7 % (0-2.0); EOS % 2.5 % (0-4.5); HEMATOCRIT 35.8 % (32.4-45.2); HEMOGLOBIN 11.4 GM/dL (10.7-15.3); LYMPH % 41.8 % (8-40); MCH 26.9 pg (25.7-33.7); MCHC 31.7 g/dl (32.0-36.0); MEAN CELL VOLUME 84.9 fl (80-96); MEAN PLT VOLUME 8.5 fl (7.5-11.1); MONO % 5.9 % (3.8-10.2); NEUT % 49.1 % (42.8-82.8); PLATELET COUNT 349 K/MM3 (134-434); RBC 4.22 M/mm3 (3.60-5.2); RDW 13.6 % (11.6-15.6); WHITE BLOOD COUNT 6.1 K/mm3 (4.0-10.0)
--- NOTE | 2018-08-16 08:29 | PN ---
Progress Note, Physician Chief Complaint: less pain nad cough feels comfortable - Current Medication List Current Medications: Active Medications Acetaminophen (Tylenol -) 650 mg PO Q6H [facility] Acetaminophen/Codeine Phosphate (Tylenol # 3 -) 1 tab PO Q8H [facility] Last Admin: 08/16/18 02:32 Dose: 1 tab Albuterol/Ipratropium (Duoneb -) 1 amp NEB Q6H PRN PRN Reason: SHORTNESS OF BREATH Cilostazol (Pletal -) 100 mg PO ASDIR [facility] Glipizide (Glucotrol Xl -) 2.5 mg PO BIDI [facility] Last Admin: 08/16/18 06:38 Dose: Not Given Guaifenesin (Diabetic Tussin Dm -) 10 ml PO Q6H PRN PRN Reason: COUGH Heparin Sodium (Porcine) (Heparin -) 5,000 unit SQ TID [facility] Last Admin: 08/16/18 06:37 Dose: 5,000 unit Sodium Chloride (Normal Saline -) 1,000 mls @ 50 mls/hr IV ASDIR [facility] Last Admin: 08/15/18 19:55 Dose: 50 mls/hr Insulin Aspart (Novolog Vial Sliding Scale -) 1 vial SQ ACHS [facility]; Protocol Last Admin: 08/16/18 06:37 Dose: 4 units Metoprolol Succinate (Toprol Xl -) 50 mg PO DAILY [facility] Montelukast Sodium (Singulair -) 10 mg PO HS [facility] Last Admin: 08/15/18 22:12 Dose: Not Given Tiotropium [place] (Spiriva Respimat) 2 puff IH DAILY [facility] - Objective Vital Signs: Vital Signs Temperature 98.3 F 08/16/18 06:00 Pulse Rate 72 08/16/18 06:00 Respiratory Rate 20 08/16/18 06:00 Blood Pressure 124/56 L 08/16/18 06:00 O2 Sat by Pulse Oximetry (%) 98 08/15/18 19:50 Elderly F not in distress HEENT: Mm moist, no anemia, PERRLA EOMI NECK: No JVD No Bruit CHEST: S/P Sterenotomy local tenderness, healed scar no inflmatory changes, CTA B/L CVS: S1S2 R no m/g/r ABD: No distention, non tender Bs + EXT: No edema fet, no calf tenderness, Pulses + FINISHER HAND: AOX3 non focal Labs: INR, PTT INR 1.09 (0.83-1.09) 08/15/18 14:20 Problem List - Problems (1) Chest pain Assessment/Plan: Reproducuble Musculo skeletal , unlikely cardiac will cont Tylenol no 3 , serial CE are normal , cont ASA and all home meds B Blockers and statin Code(s): R07.9 - CHEST PAIN, UNSPECIFIED Qualifiers: Chest pain type: chest pain on breathing Qualified Code(s): R07.1 - Chest pain on breathing; R07.81 - Pleurodynia (2) DM2 (diabetes mellitus, type 2) Assessment/Plan: Hold Metformin, Diabetic Diet cont Glpizide and Correction dose insulin Qualifiers: Diabetes mellitus book publisher insulin use: without book publisher use Diabetes mellitus complication status: with kidney complications Diabetes mellitus complication detail: with chronic kidney disease Chronic kidney disease stage : stage 3 (moderate) Qualified Code(s): E11.22 - Type 2 diabetes mellitus with diabetic chronic kidney disease; N18.3 - Chronic kidney disease, stage 3 ( moderate) (3) CKD (chronic kidney disease) stage 3, GFR 30-59 ml/min Assessment/Plan: Mild worsening due to dehydration IV hydration F/U BMP Code(s): N18.3 - CHRONIC KIDNEY DISEASE, STAGE 3 (MODERATE) (4) Hyperkalemia Code(s): E87.5 - HYPERKALEMIA (5) HTN (hypertension) Assessment/Plan: Well controlled cont all home meds, hold Lisinopril Code(s): I10 - ESSENTIAL (PRIMARY) HYPERTENSION Qualifiers: Hypertension type: essential hypertension Qualified Code(s): I10 - Essential (primary) hypertension (6) Acute bronchitis Assessment/Plan: Z Pack F/U clinically Code(s): J20.9 - ACUTE BRONCHITIS, UNSPECIFIED (7) CAD (coronary artery disease) Assessment/Plan: S/P CABG no acute issue cont ASA, B Blockers Code(s): I25.10 - ATHSCL HEART DISEASE OF [place] CORONARY ARTERY W/O ANG PCTRS Qualifiers: Coronary Disease-Associated Artery/Lesion type: [place] artery [place] vs. transplanted heart: [place] heart Associated angina: angina presence unspecified Qualified Code(s): I25.10 - Atherosclerotic heart disease of [place] coronary artery without angina pectoris (8) COPD (chronic obstructive pulmonary disease) Assessment/Plan: Cont MDI Code(s): J44.9 - CHRONIC OBSTRUCTIVE PULMONARY DISEASE, UNSPECIFIED
--- NOTE | 2018-08-16 08:52 | CON.CARD ---
Consult Consult Specialty:: cardio - History of Present Illness Chief Complaint: chest pain History of Present Illness: 73 F here with CP right chest wall, 06/18, sharp, worsens with deep breaths and coughs, constant, and is non-radiating. well-known to me from office. had chronic cough s/p prior CABG, ? due to CARMEN--resolved off the med. still with intermittent coughing due to copd, ? postnasal drip. has frequent non-cardiac mskel chest pain sx's with mult prior negative ischemia evaluations since her CABG. 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 preop cath showed patent CABG grafts and no underlying ischemic myocardium. pt states coughing began about 2 wks ago, frequent and at times severe. non- productive. no sob when not coughing. no new leg swelling. more recently (within the past 7d or less) she developed severe pain R pectoral region. hurts much more when coughs but present at rest as well. exacerbated by raising/using her R arm. or when tries to sit up from supine position in bed (i.e. use of torso muscles). no syncope PMH: CAD COPD DM HTN HPL - Past Medical History Cardio/Vascular: Yes: CAD, HTN, Hyperlipdemia Pulmonary: Yes: COPD Endocrine: Yes: Diabetes Insipidus - Past Surgical History Past Surgical History: Yes: CABG - Alcohol/Substance Use Hx Alcohol Use: No - Smoking History Smoking history: Former smoker Have you smoked in the past 12 months: No Aproximately how many cigarettes per day: 5 If you are a former smoker, when did you quit?: 2YRS AGO - Social History History of Recent Travel: No Home Medications - Allergies Allergies/Adverse Reactions: Allergies Allergy/AdvReac Type Severity Reaction Status Date / Time milk Allergy Verified 08/15/18 11:13 aspirin AdvReac Verified 08/15/18 11:13 - Home Medications Home Medications: Ambulatory Orders Glipizide [Glipizide Xl] 2.5 mg PO BID 08/08/15 Lisinopril [Prinivil] 20 mg PO DAILY 08/08/15 Metformin HCl [Metformin HCl ER] 1,000 mg PO BID 08/08/15 Metoprolol Succinate [Toprol Xl -] 50 mg PO DAILY 08/08/15 Montelukast Na [Singulair -] 10 mg PO HS 08/08/15 Tiotropium [place] [Spiriva] 18 mcg PO DAILY 04/15/17 Cilostazol 100 mg PO ASDIR 11/05/17 Valsartan [Diovan] 160 mg PO DAILY 11/05/17 Insulin Lispro [Humalog] 50 unit SQ TID 08/15/18 Family Disease History - Family Disease History Family History: Denies (no known cmp) Review of Systems - Review of Systems Constitutional: denies: Chills, Fever Eyes: denies: Eye Pain HENT: denies: Nasal Congestion Neck: denies: Stiffness Cardiovascular: denies: Palpitations Respiratory: denies: Orthopnea, PND Gastrointestinal: denies: Diarrhea, Rectal Bleeding Genitourinary: denies: Burning, Hematuria Musculoskeletal: denies: Muscle Pain Integumentary: denies: Rash Neurological: denies: Numbness, Seizure, Syncope Endocrine: denies: Excessive Sweating Hematology/Lymphatic: denies: Excessive Bleeding Vital Signs: Vital Signs Temperature 98.3 F 08/16/18 06:00 Pulse Rate 72 08/16/18 06:00 Respiratory Rate 20 08/16/18 06:00 Blood Pressure 124/56 L 08/16/18 06:00 O2 Sat by Pulse Oximetry (%) 98 08/15/18 19:50 Constitutional: Yes: Well Nourished, No Distress Eyes: No: Sclera Icterus HENT: No: Nasal Congestion Neck: No: Decreased ROM Respiratory: Yes: CTA Bilaterally. No: Accessory Muscle Use, Rales, Rhonchi, Wheezes Gastrointestinal: Yes: Normal Bowel Sounds. No: Distention, Hepatomegaly, Palpable Mass, Tenderness Cardiovascular: Yes: Regular Rate and Rhythm JVD: No Carotid Bruit: No PMI: Non-Displaced Heart Sounds: Yes: S1, S2. No: Gallop Murmur: No: Systolic Murmur, Diastolic Murmur Musculoskeletal: Yes: Other (exquisite tenderness R pectoral region over area of chief complaint--reproduces her presenting sx) Extremities: No: Cool, Cyanosis Edema: No Peripheral Pulses: 2+ Left Carotid, 2+ Right Carotid, 2+ Left Doralis Pedis, 2+ Right Dorsalis Pedis Integumentary: No: Jaundice Neurological: Yes: Alert, Oriented (x3) Psychiatric: No: Agitated - Other Data Labs, Other Data: CBC, BMP 08/16/18 06:50 INR, PTT INR 1.09 (0.83-1.09) 08/15/18 14:20 Troponin, BNP 08/15/18 08/15/18 08/15/18 14:20 14:20 20:00 Troponin I < 0.02 < 0.02 B-Natriuretic Peptide 327.0 H 08/16/18 02:20 Troponin I < 0.02 B-Natriuretic Peptide Troponin, BNP 08/15/18 08/15/18 08/15/18 14:20 14:20 20:00 Troponin I < 0.02 < 0.02 B-Natriuretic Peptide 327.0 H 08/16/18 02:20 Troponin I < 0.02 B-Natriuretic Peptide Laboratory Tests 08/15/18 08/15/18 08/15/18 14:20 14:20 20:00 WBC Hgb Plt Count Sodium 140 Potassium 5.4 H Carbon Dioxide 27 BUN 31 H Creatinine 1.4 H AST 12 L ALT 21 Troponin I < 0.02 < 0.02 B-Natriuretic Peptide 327.0 H 08/16/18 08/16/18 02:20 06:50 WBC 6.1 Hgb 11.4 Plt Count 349 Sodium Potassium Carbon Dioxide BUN Creatinine AST ALT Troponin I < 0.02 B-Natriuretic Peptide Assessment/Plan CXR: clear lungs/pleura [facility] 03/26: patent LASHAWN to mid LAD, Y graft from SVG to RCA escobedo. patent SVG to RPDA. [employer] d-RCA fills from graft. 80-90% pLAD, RESEARCH CHEMICAL ENGINEER mLAD, RESEARCH CHEMICAL ENGINEER D1--all fill from their respective grafts. tele: NSR, artifact atypical CP: -trop neg x 3. -pt with recent cath showing patent grafts and no ischemic substrate -pt frequently with chest wall pain syndromes, often exacerbated by URI/cough -present sx is mskel, as evidenced by complete reproducibility of pain on palpation (exquisitely tender in the affected region), began after vigorous coughing for several days, worse with motion/use of R arm and chest wall muscles. -no further cardiac w/u indicated. -d/c telemetry CAD: -prior cabg, all patent on recent cath 03/26 -cont home meds cough, ? URI: -per hospitalist HTN: -well controlled -cont home meds DM: -per hospitalist
[2018-08-16 09:03] LABS: ANION GAP 10 MMOL/L (8-16); BLOOD UREA NITROGEN 31 mg/dL (7-18); CALCIUM 9.1 mg/dL (8.5-10.1); CHLORIDE 109 mmol/L (98-107); CO2 23 mmol/L (21-32); CREATININE 1.4 mg/dL (0.55-1.3); GLUCOSE,RANDOM 188 mg/dL (74-106); POTASSIUM 4.8 mmol/L (3.5-5.1); SODIUM 142 mmol/L (136-145)
[2018-08-16] MEDS ORDERED: PATIENT'S OWN MEDICATION (NON-FORMULARY) (Tiotropium Bromide [Spiriva] 18 MCG) PO SCH (10:00)
[2018-08-16] MEDS ORDERED: TIOTROPIUM BROMIDE 2.5 MCG (SPIRIVA) RESPIMAT INHALER IH SCH (10:00)
[2018-08-16] MEDS ORDERED: FLUTICASONE/SALMETEROL 100 MCG/50 MCG DISKUS IH SCH (10:00)
[2018-08-16] MEDS ORDERED: AZITHROMYCIN 500 MG TABLET PO ONE (12:30)
--- NOTE | 2018-08-16 13:29 | DS ---
Physical Examination Vital Signs: Elderly F not in distress, feels improved since yesterday. HEENT: Mm moist, no anemia, PERRLA EOMI NECK: No JVD No Bruit CHEST: S/P Strenotomy local tenderness, healed scar no inflammatory changes, CTA B/L CVS: S1S2 R no m/g/r ABD: No distention, non tender Bs + EXT: No edema fet, no calf tenderness, Pulses + [place] MATE: AOX3 non focal Labs: CBC, BMP 08/16/18 06:50 08/16/18 06:50 Trop X3 normal EKG no acute ST T changes Discharge Summary Reason For Visit: CHEST PAIN DUE TO CORONARY ARTERY DISEASE Current Active Problems Acute bronchitis (Acute) CAD (coronary artery disease) (Acute) CKD (chronic kidney disease) stage 3, GFR 30-59 ml/min (Acute) COPD (chronic obstructive pulmonary disease) (Acute) Chest pain (Acute) DM2 (diabetes mellitus, type 2) (Acute) HLD (hyperlipidemia) (Acute) HTN (hypertension) (Acute) Hyperkalemia (Acute) Hospital Course: 73 yrs old F multiple medical Co-morbidities H/O HTN, PAD, Hypercholesterolemia , poorly T2DM< CAD s/p CABG in 2013 need revision Sternotomy as sutures dehesnces after a bout of coughing , COPD, HTN, CKD stage 3 today present with sternal pain for past 3 wks after URTI episode worsened over past 2 days denies any radiation, pain s constant with local tenderness at suture site, no discharge no erythema or gap, patient physical exam reveled B/L wheezes, lab shows Hyperkalemia and LACHELLE improved with IV Hydration, symptoms improved with bronchodilators and cough supperresent, patient is evaluted by Cardiology consult cleared to [place] home, Hyperkalemia and LACHELLE resolved. Condition: Stable - Instructions Referrals: Nahomi Carter MD [Primary Care Provider] - Disposition: HOME - Home Medications Comprehensive Discharge Medication List: Ambulatory Orders Home Medication List Medication Instructions Recorded Confirmed Type Insulin Lispro [Humalog] 50 unit SQ TID 08/15/18 08/15/18 History Albuterol Sulfate [Proair Hfa] 08/16/18 History Amlodipine Besylate 5 mg PO DAILY 08/16/18 08/16/18 History Fenofibrate 145 mg PO DAILY 08/16/18 08/16/18 History Insulin Glargine,Hum.rec.anlog 08/16/18 History [Lantus] Losartan-Hctz 100-12.5 mg Tab 100 mg PO DAILY 08/16/18 08/16/18 History Metoprolol Tartrate 25 mg PO DAILY 08/16/18 08/16/18 History Pitavastatin Calcium [Livalo] 1 mg PO HS 08/16/18 08/16/18 History Ranitidine [Zantac -] 150 mg PO DAILY 08/16/18 08/16/18 History Sitagliptin Phosphate [Januvia] 100 mg PO DAILY 08/16/18 08/16/18 History Active Medications Active Medications Patient home meds were not updated as they are unable to recall advised to cont all home med and Following addital meds were prescribed: Azithromycine 250 mg BID for 3 days Acetaminophen/Codeine Phosphate (Tylenol # 3 -) 1 tab PO Q8H PRIYANKA Fluticasone/Salmeterol (Advair 100mcg/50mcg -) 1 puff IH BID PRIYANKA
[2018-08-16 14:04] VITALS: BP 151/89; PULSE 92; TEMP 97.8
[2018-08-16] MEDS ORDERED: INSULIN (NOVOLOG) ASPART 100 UNITS/ML 10ML VIAL ONE (14:28)
== END 2018-08-16 15:14 | disposition home or self-care (01) ==
LOC: JER 11:07 → JERBED 16:16 → J4W 19:20
PROVIDERS: ADMIT Internal Medicine; ATTEND Internal Medicine
PROC: 3E013VG Introduction of Insulin into Subcutaneous Tissue, Percutaneous Approach (ICD-10-PCS; principal; 2018-08-15)
DX: R07.9 Chest pain, unspecified (principal); R07.1 Chest pain on breathing; I25.10 Atherosclerotic heart disease of native coronary artery without angina pectoris; I13.10 Hypertensive heart and chronic kidney disease without heart failure, with stage 1 through stage 4 chronic kidney disease, or unspecified chronic kidney disease; N18.3 Chronic kidney disease, stage 3 (moderate); Z95.1 Presence of aortocoronary bypass graft; E11.22 Type 2 diabetes mellitus with diabetic chronic kidney disease; Z79.84 Long term (current) use of oral hypoglycemic drugs; J44.9 Chronic obstructive pulmonary disease, unspecified; J45.909 Unspecified asthma, uncomplicated; J20.9 Acute bronchitis, unspecified; Z98.890 Other specified postprocedural states
CPT/HCPCS: 36415; 71045-TC-FY; 80048; 80053; 82550; 82962; 83036; 83880; 84484; 85025; 85610; 85730; 86850; 86900; 86901; 93005; 93010; 96372; 99284-25; G0378; J1644; J7030

== ENCOUNTER 2018-12-03 11:12 | Emergency (ER) | payer OTHER ==
[2018-12-03 11:26] VITALS: BP 156/71; PULSE 89; TEMP 97.7; BMI 26.4
--- NOTE | 2018-12-03 13:05 | PDOC ---
History of Present Illness - General History Source: Patient Exam Limitations: No Limitations <Paty Murrell - Last Filed: 12/03/18 15:51> <Hernandez Kraus - Last Filed: 12/03/18 16:44> - General Chief Complaint: Chest Pain Stated Complaint: CHEST PAIN Time Seen by Provider: 12/03/18 13:05 - History of Present Illness Initial Comments: 12/03/18 14:06 The patient is a 73 year old female, with a significant past medical history of CAD (s/p CABG 2012 revision of sternotomy 2017), DM, COPD (not on @ home O2), HLD, DM, and HTN, who presents to the emergency department with, chest pain, a right sided pressure in character, lasting for the past several weeks worsening yesterday, pleuritic, with associated fever and chills. She denies recent headache or dizziness. She denies recent nausea, vomit, diarrhea or constipation. She denies recent dysuria, frequency, urgency or hematuria. Allergies: Milk and aspirin. Primary Care Physician: Dr. Jeffers (Paty Murrell) Past History <Paty Murrell - Last Filed: 12/03/18 15:51> - Past Medical History Anemia: No Asthma: Yes Cancer: No Cardiac Disorders: Yes (CAD) CVA: No COPD: Yes CHF: No Dementia: No Diabetes: Yes GI Disorders: No Disorders: No HTN: Yes Hypercholesterolemia: Yes Liver Disease: No Seizures: No Thyroid Disease: No - Surgical History Abdominal Surgery: Yes (OVARY REMOVED, SBO) Appendectomy: Yes Cardiac Surgery: Yes (CABG-2012 and revision sternotomy 2017) Cholecystectomy: No Lung Surgery: No Neurologic Surgery: No Orthopedic Surgery: No - Immunization History Td Vaccination: Yes Immunization Up to Date: Yes - Suicide/Smoking/Psychosocial Hx Smoking Status: Yes Smoking History: Former smoker Have you smoked in the past 12 months: No Number of Cigarettes Smoked Daily: 5 If you are a former smoker, when did you quit?: 2012 Information on smoking cessation initiated: No Hx Alcohol Use: No Drug/Substance Use Hx: No Substance Use Type: None Hx Substance Use Treatment: No <Hernandez Kraus - Last Filed: 12/03/18 16:44> - Past Medical History Allergies/Adverse Reactions: Allergies Allergy/AdvReac Type Severity Reaction Status Date / Time milk Allergy Verified 08/15/18 11:13 aspirin AdvReac Verified 08/15/18 11:13 Home Medications: Ambulatory Orders Insulin Lispro [Humalog] 50 unit SQ TID 08/15/18 Albuterol Sulfate [Proair Hfa] 08/16/18 Amlodipine Besylate 5 mg PO DAILY 08/16/18 Azithromycin 250 mg PO BID 3 Days #6 tablet 08/16/18 Fenofibrate 145 mg PO DAILY 08/16/18 Guaifenesin/D-Methorphan Hb [Diabetic Tussin Dm -] 10 ml PO Q6H PRN #1 ml Insulin Glargine,Hum.rec.anlog [Lantus] 08/16/18 Losartan-Hctz 100-12.5 mg Tab 100 mg PO DAILY 08/16/18 Metoprolol Tartrate 25 mg PO DAILY 08/16/18 Pitavastatin Calcium [Livalo] 1 mg PO HS 08/16/18 Ranitidine [Zantac -] 150 mg PO DAILY 08/16/18 Salmeterol/Fluticasone [Advair 100Mcg/50Mcg -] 1 puff IH BID #1 inhaler Sitagliptin Phosphate [Januvia] 100 mg PO DAILY 08/16/18 Tiotropium [place] [Spiriva Respimat] 2 puff IH DAILY inhaler 08/16/18 Tramadol HCl 50 mg PO TID #20 tablet MDD 3 12/03/18 Cardiac Specific PMH - Complaint Specific PMHX Pacemaker: No <Hernandez Kraus - Last Filed: 12/03/18 16:44> Review of Systems - Review of Systems Able to Perform ROS?: Yes All Other Systems: Reviewed and Negative <Paty Murrell - Last Filed: 12/03/18 15:51> <Hernandez Kraus - Last Filed: 12/03/18 16:44> - Review of Systems Comments:: 12/03/18 14:07 CONSTITUTIONAL: No fever, no chills, no fatigue EYES: No visual changes ENT: No ear pain, no sore throat CARDIOVASCULAR: + chest pain, no palpitations RESPIRATORY: No cough, +SOB GI: No abdominal pain, no nausea, no vomiting, no constipation, no diarrhea GENITOURINARY: No dysuria, no frequency, no hematuria MUSKULOSKELETAL: No back pain, no joint pain, no myalgias SKIN: No rash NEURO: No headache (Paty Murrell) *Physical Exam <NilsonlucyamandaPaty lee - Last Filed: 12/03/18 15:51> <Hernandez Kraus - Last Filed: 12/03/18 16:44> - Vital Signs Last Vital Signs Temp Pulse Resp BP Pulse Ox 97.7 F 89 18 156/71 99 12/03/18 11:23 12/03/18 11:23 12/03/18 11:23 12/03/18 11:23 12/03/18 11:23 - Physical Exam Comments: 12/03/18 15:52 CONSTITUTIONAL: Well-appearing; well-nourished; in no apparent distress HEAD: Normocephalic; atraumatic EYES: PERRL; EOM intact ENMT: External appears normal; normal oropharynx NECK: Supple; non-tender; no cervical lymphadenopathy CARD: Normal S1, S2; no murmurs, rubs, or gallops CHEST: +Reproducible tenderness to the right parasternal border. Well-healed sternotomy scar. RESP: Normal chest excursion with respiration; breath sounds clear and equal bilaterally; no wheezes, rhonchi, or rales ABD: Soft, non-distended; non-tender; no palpable organomegaly, no palpable hernias EXT: Normal ROM in all four extremities; non-tender to palpation; distal pulses intact SKIN: Warm, dry, no rash NEURO: No focal neurological deficiencies. (Paty Murrell) Heart Score/ECG Review <Paty Murrell - Last Filed: 12/03/18 15:51> <Hernandez Kraus - Last Filed: 12/03/18 16:44> #1 12/03/18 14:37 EKG performed at: 03 December 2018 at 11:09 Vent Rate 85 bpm OH interval 106 ms QRS duration 68 ms QT/QTc 356/423 ms P-R-T axes 62 32 106 Sinus rhythm with short OH Possible left atrial enlargement Septal infarct, age undetermined Abnormal ECG (Paty Murrell) ED Treatment Course - LABORATORY CBC & Chemistry Diagram: 12/03/18 14:11 12/03/18 14:11 <Paty Murrell - Last Filed: 12/03/18 15:51> - LABORATORY CBC & Chemistry Diagram: 12/03/18 14:11 12/03/18 14:11 <Hernandez Kraus - Last Filed: 12/03/18 16:44> - ADDITIONAL ORDERS Additional order review: Laboratory Results 12/03/18 14:11 Sodium 138 Potassium 5.2 H Chloride 106 Carbon Dioxide 26 Anion Gap 5 L BUN 25 H Creatinine 1.3 Creat Clearance w eGFR 40.26 Random Glucose 211 H Calcium 10.1 Total Bilirubin 0.3 AST 16 ALT 26 Alkaline Phosphatase 57 Total Protein 7.6 Albumin 4.1 12/03/18 14:11 RBC 4.31 MCV 87.0 MCHC 31.8 L RDW 13.2 MPV 8.3 Neutrophils % 57.9 Lymphocytes % 32.5 D Monocytes % 7.6 Eosinophils % 1.5 Basophils % 0.5 - RADIOLOGY Radiology Studies Ordered: Category Date Time Status CHEST PA & LAT [RAD] Stat Radiology 12/03/18 13:25 Completed - Medications Given in the ED: ED Medications Discontinued Medications Generic Name Dose Route Start Last Admin Trade Name Freq PRN Reason Stop Dose Admin Tramadol HCl 50 mg 12/03/18 13:25 12/03/18 14:14 Ultram - PO 12/03/18 13:26 50 mg ONCE ONE Administration Medical Decision Making <Paty Murrell - Last Filed: 12/03/18 15:51> <Hernandez Kraus - Last Filed: 12/03/18 16:44> - Medical Decision Making 12/03/18 16:39 73-year-old female with history of CAD, status post CABG presents with atraumatic muscular right parasternal discomfort for the past year that has increased in severity over the past several days. Pain is reproducible and exacerbated by chest wall movements and right arm movement. EKG reveals no evidence of acute ischemia. Chest x-ray reveals sternal wires and numerous soft tissue angeline. I suspect the patient's discomfort is caused by scar tissue and is not related to ACS or PE. Patient has had numerous evaluations for similar symptoms and has undergone an extensive ischemic workup by cardiology. I discussed the case with Dr. Cerda. He agrees with the plan of discharge with CT surgery follow-up. Will discharge. (Hernandez Kraus) *DC/Admit/Observation/Transfer <Paty Murrell - Last Filed: 12/03/18 15:51> <Hernandez Kraus - Last Filed: 12/03/18 16:44> Diagnosis at time of Disposition: Chest wall pain - Discharge Dispostion Disposition: HOME Condition at time of disposition: Stable - Referrals Referrals: Mohsen Jeffers MD [Primary Care Provider] - Nasir Haas MD [Staff Physician] - - Patient Instructions Printed Discharge Instructions: DI for Atypical Chest Pain - Post Discharge Activity - Attestations Scribe Attestion: 12/03/18 14:10 Documentation prepared by Paty Murrell, acting as medical registrar for Hernandez Kraus MD. (Paty Murrell) Physician Attestion: 12/03/18 16:39 The documentation was prepared by the scribe under my direct supervision. I have reviewed the documentation which correctly represents the findings, medical decision-making and critical action taken by me. (Hernandez Kraus)
[2018-12-03] MEDS ORDERED: traMADol HCL 50 MG TABLET PO ONE (13:25)
[2018-12-03] MEDS ORDERED: traMADol HCL 50 MG TABLET ONE (14:05)
[2018-12-03 14:27] LABS: BASO % 0.5 % (0-2.0); EOS % 1.5 % (0-4.5); HEMATOCRIT 37.5 % (32.4-45.2); HEMOGLOBIN 11.9 GM/dL (10.7-15.3); LYMPH % 32.5 % (8-40); MCH 27.7 pg (25.7-33.7); MCHC 31.8 g/dl (32.0-36.0); MEAN PLT VOLUME 8.3 fl (7.5-11.1); MONO % 7.6 % (3.8-10.2); NEUT % 57.9 % (42.8-82.8); PLATELET COUNT 309 K/MM3 (134-434); RBC 4.31 M/mm3 (3.60-5.2); RDW 13.2 % (11.6-15.6); WHITE BLOOD COUNT 6.7 K/mm3 (4.0-10.0)
[2018-12-03 14:49] LABS: ALBUMIN 4.1 g/dl (3.4-5.0); ALK PHOS 57 U/L (45-117); ANION GAP 5 MMOL/L (8-16); BILIRUBIN,TOTAL 0.3 mg/dL (0.2-1); BLOOD UREA NITROGEN 25 mg/dL (7-18); CALCIUM 10.1 mg/dL (8.5-10.1); CHLORIDE 106 mmol/L (98-107); CO2 26 mmol/L (21-32); CREATININE 1.3 mg/dL (0.55-1.3); GLUCOSE,RANDOM 211 mg/dL (74-106); POTASSIUM 5.2 mmol/L (3.5-5.1); SGOT/AST 16 U/L (15-37); SGPT/ALT 26 U/L (13-61); SODIUM 138 mmol/L (136-145); TOT PROT 7.6 g/dl (6.4-8.2)
--- NOTE | 2018-12-04 11:48 | EKG ---
Test Reason : Blood Pressure : / mmHG Vent. Rate : 085 BPM Atrial Rate : 085 BPM P-R Int : 106 ms QRS Dur : 068 ms QT Int : 356 ms P-R-T Axes : 062 032 106 degrees QTc Int : 423 ms SINUS RHYTHM WITH SHORT [place] POSSIBLE LEFT ATRIAL ENLARGEMENT SEPTAL INFARCT , AGE UNDETERMINED ABNORMAL ECG WHEN COMPARED WITH ECG OF 15-AUG-2018 11:11, SEPTAL INFARCT IS NOW PRESENT Confirmed by QUIRINO ESCOBEDO, ALEXIS ([id number]) on 12/04/2018 11:47:52 AM Referred By: Confirmed By:ALEXIS WIN MD
== END 2018-12-03 17:02 | disposition home or self-care (01) ==
LOC: JER 11:12
DX: R07.89 Other chest pain (principal); Z95.1 Presence of aortocoronary bypass graft; I25.10 Atherosclerotic heart disease of native coronary artery without angina pectoris
CPT/HCPCS: 36415; 71046-TC-FY; 80053; 85025; 93005; 93010; 99282-25

== ENCOUNTER 2020-04-30 12:23 | Emergency (ER) | payer OTHER ==
[2020-04-30 12:28] VITALS: BMI 24.5
[2020-04-30] MEDS ORDERED: KETOROLAC TROMETHAMINE 15 MG/ML VIAL IVPUSH ONE (13:20)
[2020-04-30] MEDS ORDERED: LIDOCAINE 5% TOPICAL PATCH TP ONE (13:22)
--- NOTE | 2020-04-30 13:42 | PDOC ---
History of Present Illness - History of Present Illness Initial Comments: 04/30/20 13:36 74 F with hx CAD s/p CABDs ( reverse with sternotomy ) , HTN, HLD, DM, COPD presented with ED with "left shoulder pain". Pain has been worsening since Saturday without any trauma incitation. Patient was unable to lift, abduct. Pain is not relieved with tylenol use. Patient has used over 9 pills of 500mg tylenol per days since Saturday. Patient denies F/C/N/V/D/chest pain. Patient complained of left ulnar radiculopathy. Pain is sharp, radiates from the neck to the back of the arm to the left fourth and fifth digits associated with pin and needle sensation. Patient refuses opioid medication. PMH: see above PSH: see above ALlergy: milk, aspirin ( not a real allergy , she just has GERD) SS: past smoker. denies drug PCP: nahomi GROVER GENERAL/CONSTITUTIONAL: No fever or chills. No weakness. HEAD, EYES, EARS, NOSE AND THROAT: No change in vision. No ear pain or discharge. No sore throat. CARDIOVASCULAR: No chest pain or shortness of breath RESPIRATORY: No cough, wheezing, or hemoptysis. GASTROINTESTINAL: No nausea, vomiting, diarrhea or constipation. GENITOURINARY: No dysuria, frequency, or change in urination. MUSCULOSKELETAL: left shoulder pain. No neck or back pain. SKIN: No rash NEUROLOGIC: No headache, vertigo, loss of consciousness, or change in strength/sensation. ENDOCRINE: No increased thirst. No abnormal weight change HEMATOLOGIC/LYMPHATIC: No anemia, easy bleeding, or history of blood clots. ALLERGIC/IMMUNOLOGIC: No hives or skin allergy. PE, VS wnl. GENERAL: Awake, alert, and fully oriented, in mild acute distress sitting l eftsided loopsided. HEAD: No signs of trauma, normocephalic, atraumatic EYES: PERRLA, EOMI, sclera anicteric, conjunctiva clear ENT: Auricles normal inspection, hearing grossly normal, nares patent, oropharynx clear without exudates. Moist mucosa NECK: Normal ROM, supple, no lymphadenopathy, JVD, or masses, no midline tenderness. LUNGS: No distress, speaks full sentences, clear to auscultation bilaterally HEART: Regular rate and rhythm, normal S1 and S2, no murmurs, rubs or gallops, peripheral pulses normal and equal bilaterally. ABDOMEN: Soft, nontender, normoactive bowel sounds. No guarding, no rebound. No masses EXTREMITIES : Normal inspection, Normal range of motion, no edema. No clubbing or cyanosis. left paraspinal tenderness, ulnar radiculopathy. normal pulses. NEUROLOGICAL: Cranial nerves II through XII grossly intact. Normal speech, normal gait, no focal sensorimotor deficits SKIN: Warm, Dry, normal turgor, no rashes or lesions noted MDM 73 F with significant cardiac hx , HTN, DM, COPD presented to the ED with one week of left shoulder pain and ulnar neuropathy. DDX including but not limited to: spinal stenosis, spinal compression, MSK, ACS. W/U: CBC, CMP, trop, coag EKG, chest xray, CT cervical noncontrast. EKG : vent rate 75, QTc 410, sinus rthtym with short MI , possible left atrial enlargement, no ST elevation. TX: tor[place] 15 , lidocaine patch. -chest Xray is negative, no infilrate. -Lab: troponin is negative, BUN/Cr 30/1.6, slightly elevated. -Pain is reassessed. Patient is improved, but still had pain. -CT scan showed C3-4 severe central stenosis, clear evident of spinal cord compression C6-7 moderate central stenosis, possible cord compression. -Called Dr. Lewis on-call neurosurgeon twice. He didn't return the call. It's been hours. -Patient preferred to go to [facility]. -Will transfer Patient to [place] for neurosurgery for spinal cord compression. 04/30/20 19:51 <Jesus Corea - Last Filed: 04/30/20 22:01> <Acacia Tolbert - Last Filed: 05/05/20 07:42> - General Chief Complaint: Pain Stated Complaint: LT SHOULDER PAIN Time Seen by Provider: 04/30/20 12:30 Past History - Medical History Anemia: No Asthma: Yes Cancer: No Cardiac Disorders: Yes (CAD) CVA: No COPD: Yes CHF: No Dementia: No Diabetes: Yes GI Disorders: No Disorders: No HTN: Yes Hypercholesterolemia: Yes Liver Disease: No Seizures: No Thyroid Disease: No - Surgical History Abdominal Surgery: Yes (OVARY REMOVED, SBO) Appendectomy: Yes Cardiac Surgery: Yes (CABG-2013 and revision sternotomy 2018) Cholecystectomy: No Lung Surgery: No Neurologic Surgery: No Orthopedic Surgery: No - Reproductive History Is Patient Now?: No - Immunization History Td Vaccination: Yes Immunization Up to Date: Yes - Psycho-Social/Smoking History Smoking Status: Yes Smoking History: Unknown if ever smoked Have you smoked in the past 12 months: No Number of Cigarettes Smoked Daily: 5 If you are a former smoker, when did you quit?: 2013 - Substance Abuse Hx (Audit-C & DAST Scrn) How often the patient has a drink containing alcohol: Never Score: In Men: 4 or > Positive; In Women: 3 or > Positive: 0 Screen Result (Pos requires Nsg. Audit-10AR): Negative In the last yr the pt used illegal drug/Rx for NonMed reason: No Score: Yes response is considered Positive: 0 Screen Result (Positive result requires Nsg. DAST-10): Negative <Jesus Corea - Last Filed: 04/30/20 22:01> <Acacia Tolbert - Last Filed: 05/05/20 07:42> - Medical History Allergies/Adverse Reactions: Allergies Allergy/AdvReac Type Severity Reaction Status Date / Time milk Allergy Verified 08/15/18 11:13 aspirin AdvReac Verified 08/15/18 11:13 Home Medications: Ambulatory Orders Insulin Lispro [Humalog] 50 unit SQ TID 08/15/18 Albuterol Sulfate [Proair Hfa] 08/16/18 Amlodipine Besylate 2.5 mg PO DAILY 08/16/18 Insulin Glargine,Hum.rec.anlog [Lantus] 08/16/18 Losartan-Hctz 100-12.5 mg Tab 100 mg PO DAILY 08/16/18 Pitavastatin Calcium [Livalo] 1 mg PO HS 08/16/18 Ranitidine [Zantac -] 150 mg PO DAILY 08/16/18 Salmeterol/Fluticasone [Advair 100Mcg/50Mcg -] 1 puff IH BID #1 inhaler 08/16/18 Sitagliptin Phosphate [Januvia] 100 mg PO DAILY 08/16/18 Tiotropium [place] [Spiriva Respimat] 2 puff IH DAILY inhaler 08/16/18 Alirocumab [Praluent Pen] 75 mg SQ 04/30/20 Aspirin [ASA -] 81 mg PO DAILY 04/30/20 Fenofibrate Nanocrystallized [Tricor] 145 mg PO DAILY 04/30/20 Icosapent Ethyl [Vascepa] 1 gm PO 04/30/20 Metoprolol Succinate mg PO DAILY 04/30/20 Sertraline HCl [Zoloft -] 50 mg PO DAILY 04/30/20 *Physical Exam - Vital Signs Last Vital Signs Temp Pulse Resp BP Pulse Ox 97.9 F 80 18 146/62 99 04/30/20 12:25 04/30/20 12:25 04/30/20 12:25 04/30/20 12:25 04/30/20 12:25 <Jesus Corea - Last Filed: 04/30/20 22:01> - Vital Signs Last Vital Signs Temp Pulse Resp BP Pulse Ox 98.3 F 73 18 150/81 99 04/30/20 20:21 04/30/20 20:21 04/30/20 20:21 04/30/20 20:21 04/30/20 19:20 <Acacia Tolbert - Last Filed: 05/05/20 07:42> ED Treatment Course - LABORATORY CBC & Chemistry Diagram: 04/30/20 13:12 04/30/20 13:12 - RADIOLOGY Radiology Studies Ordered: Category Date Time Status CERVICAL SPINE CT W/O CONTR [CT] Stat CT Scan 04/30/20 13:20 Ordered CHEST PA & LAT [RAD] Stat Radiology 04/30/20 13:08 Ordered <Jesus Corea - Last Filed: 04/30/20 22:01> - LABORATORY CBC & Chemistry Diagram: 04/30/20 13:12 04/30/20 13:12 - ADDITIONAL ORDERS Additional order review: 04/30/20 04/30/20 18:21 13:12 RBC 3.89 MCV 86.0 MCHC 32.9 RDW 13.3 MPV 8.8 Neutrophils % 61.4 Lymphocytes % 29.3 Monocytes % 6.4 Eosinophils % 2.0 Basophils % 0.9 POC Glucometer 160 - Medications Given in the ED: ED Medications Discontinued Medications Generic Name Dose Route Start Last Admin Trade Name Freq PRN Reason Stop Dose Admin Acetaminophen 975 mg 04/30/20 15:12 08/22/20 15:59 Tylenol - PO 04/30/20 15:13 975 mg ONCE ONE Administration Acetaminophen 975 mg 04/30/20 19:00 04/30/20 20:41 Tylenol - PO 04/30/20 19:01 Not Given ONCE ONE Cyclobenzaprine HCl 10 mg 04/30/20 15:11 04/30/20 15:59 Flexeril - PO 04/30/20 15:12 10 mg ONCE ONE Administration Ketorolac Tromethamine 15 mg 04/30/20 13:20 04/30/20 14:04 Toradol Injection - IVPUSH 04/30/20 13:21 15 mg ONCE ONE Administration Lidocaine 1 patch 04/30/20 13:22 04/30/20 14:05 Lidoderm Patch - TP 04/30/20 13:23 1 patch ONCE ONE Administration Methocarbamol 750 mg 04/30/20 19:03 04/30/20 19:32 Robaxin - PO 04/30/20 19:04 750 mg NOW ONE Administration <Acacia Tolbert - Last Filed: 05/05/20 07:42> Discharge - Discharge Information Problems reviewed: Yes <Jesus Corea - Last Filed: 04/30/20 22:01> <Acacia Tolbert - Last Filed: 05/05/20 07:42> - Discharge Information Clinical Impression/Diagnosis: Spinal cord compression, Cervical radiculopathy Condition: Fair Disposition: TRANSFER ACUTE CARE/OTHER HOSP - Follow up/Referral Referrals: Nahomi Carter MD [Primary Care Provider] - - Patient Discharge Instructions - Post Discharge Activity
[2020-04-30] MEDS ORDERED: LIDOCAINE 5% TOPICAL PATCH ONE (13:50)
[2020-04-30] MEDS ORDERED: KETOROLAC TROMETHAMINE 15 MG/ML VIAL ONE (13:50)
--- NOTE | 2020-04-30 13:52 | PDOC ---
Attending Attestation - Resident Resident Name: Jesus Corea - ED Attending Attestation I have performed the following: I have examined & evaluated the patient, The case was reviewed & discussed with the resident, I agree w/resident's findings & plan - HPI HPI: 04/30/20 13:49 74 F with hx 2 CAD s/p CABG ( reverse with sternotomy ) , HTN, HLD, DM, COPD presented with ED with "left shoulder pain". Pain has been worsening since Saturday without any trauma incitation. Patient was unable to lift, abduct. Pain is not relieved with tylenol use. Patient has used over 9 pills of 500mg tylenol per days since saturday. Patient denies F/C/N/V/D/chest pain. Patient complainded of left ulnar radiculopathy, pain radiates from the neck to the back of the arm to the left fourth and fifth digits associated with pin and needle sensation. 04/30/20 14:20 - Physicial Exam PE: 04/30/20 13:49 Agree with the resident's HPI and PE as documented in the electronic medical record. NAD, well appearing, EOMI, PERRL, nl conjunctiva, anicteric; neck supple. lungs clear, RRR, abdomen soft nontender. no rebound, guarding. Back nontender. ESTRADA x4, no focal neuro deficits. No peripheral edema. normal color for ethnicity, WWP. +left scapular and shoulder TTP, point tenderness posteriorly and significantly. 5/5 prox strength, 5/5 shoulder shrug SILT, grossly intact in median/ulnar and radial distribution. 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 +subjective numbness/tingling pain in the ulnar distrubition of LUE 04/30/20 15:10 05/02/20 10:49 - Medical Decision Making 04/30/20 13:50 Vital Signs Temp Pulse Resp BP Pulse Ox 97.9 F 80 18 146/62 99 04/30/20 12:25 04/30/20 12:25 04/30/20 12:25 04/30/20 12:25 04/30/20 12:25 vitals reviewed, wnl, reassuring unlikely cardiac, but given history, check trop/labs labs and lytes wnl, neg trop ekg is sinus rhythm, nonischemic. no st elevations or depressions. CT spine pending, reeval, ultimate dispo pending reeval and imaging reports s/o to dr Bernabe at 1600 04/30/20 15:12 Heart Score/ECG Review #1 ECG reviewed & interpreted by me at: 12:35 General ECG Interpretation: Sinus Rhythm, Normal Rate, Normal Intervals 04/30/20 13:50 EKG normal sinus rhythm 75 bpm, no interval abnormalities, narrow QRS, ST and T wave segments and morphology normal. Discharge - Discharge Information Problems reviewed: Yes Clinical Impression/Diagnosis: Spinal cord compression Condition: Fair Disposition: TRANSFER ACUTE CARE/OTHER HOSP - Follow up/Referral Referrals: Nahomi Carter MD [Primary Care Provider] - - Patient Discharge Instructions - Post Discharge Activity
[2020-04-30 14:01] LABS: BASO % 0.9 % (0-2.0); HEMATOCRIT 33.5 % (32.4-45.2); LYMPH % 29.3 % (8-40); MCH 28.3 pg (25.7-33.7); MCHC 32.9 g/dl (32.0-36.0); MEAN PLT VOLUME 8.8 fl (7.5-11.1); MONO % 6.4 % (3.8-10.2); NEUT % 61.4 % (42.8-82.8); PLATELET COUNT 313 K/MM3 (134-434); RBC 3.89 M/mm3 (3.60-5.2); RDW 13.3 % (11.6-15.6); WHITE BLOOD COUNT 5.9 K/mm3 (4.0-10.0)
[2020-04-30 14:18] LABS: ALBUMIN 4.1 g/dl (3.4-5.0); ALK PHOS 43 U/L (45-117); ANION GAP 8 MMOL/L (8-16); BILIRUBIN,TOTAL 0.4 mg/dL (0.2-1); BLOOD UREA NITROGEN 30.2 mg/dL (7-18); CALCIUM 9.6 mg/dL (8.5-10.1); CHLORIDE 110 mmol/L (98-107); CO2 24 mmol/L (21-32); CREATININE 1.6 mg/dL (0.55-1.3); GLUCOSE,RANDOM 188 mg/dL (74-106); POTASSIUM 4.2 mmol/L (3.5-5.1); SGOT/AST 14 U/L (15-37); SGPT/ALT 22 U/L (13-61); SODIUM 142 mmol/L (136-145); TOT PROT 7.5 g/dl (6.4-8.2)
[2020-04-30] MEDS ORDERED: CYCLOBENZAPRINE HCL 10 MG TABLET (FP) PO ONE (15:11)
[2020-04-30] MEDS ORDERED: ACETAMINOPHEN 325 MG TABLET (FP) PO ONE ×2 (15:12→19:00)
[2020-04-30 15:23] LABS: INR 1.15 (0.83-1.09); PROTHROMBIN TIME (PATIENT) 13.6 SEC (9.7-13.0)
[2020-04-30 15:26] LABS: ACTIVATED PTT 24.9 SECONDS (25.2-36.5)
[2020-04-30] MEDS ORDERED: ACETAMINOPHEN 325 MG TABLET (FP) ONE ×2 (15:56→20:31)
[2020-04-30] MEDS ORDERED: CYCLOBENZAPRINE HCL 10 MG TABLET (FP) ONE (15:56)
[2020-04-30] MEDS ORDERED: METHOCARBAMOL 750 MG TAB PO ONE (19:03)
[2020-04-30] MEDS ORDERED: METHOCARBAMOL 500 MG TABLET ONE (19:18)
[2020-04-30 20:58] VITALS: BP 150/81; PULSE 73; TEMP 98.3
[2020-04-30] MEDS ORDERED: LIDOCAINE PATCH REMOVAL MC SCH (22:00)
--- NOTE | 2020-05-02 21:52 | EKG ---
Test Reason : Blood Pressure : / mmHG Vent. Rate : 075 BPM Atrial Rate : 075 BPM P-R Int : 106 ms QRS Dur : 066 ms QT Int : 368 ms P-R-T Axes : 067 027 107 degrees QTc Int : 410 ms SINUS RHYTHM WITH SHORT ME POSSIBLE LEFT ATRIAL ENLARGEMENT CANNOT RULE OUT ANTERIOR INFARCT (CITED ON OR BEFORE 03-DEC-2018) T WAVE ABNORMALITY, CONSIDER LATERAL ISCHEMIA ABNORMAL ECG WHEN COMPARED WITH ECG OF 03-DEC-2018 11:09, NO SIGNIFICANT CHANGE WAS FOUND Confirmed by ALEXIS CHAPMAN MD ([id number]) on 05/02/2020 9:52:03 PM Referred By: Confirmed By:ALEXIS CHAPMAN MD
== END 2020-04-30 21:15 | disposition short-term general hospital (02) ==
LOC: JER 12:23
PROC: 3E0333Z Introduction of Anti-inflammatory into Peripheral Vein, Percutaneous Approach (ICD-10-PCS; principal; 2020-04-30)
DX: G95.20 Unspecified cord compression (principal)
CPT/HCPCS: 36415; 71046-TC-FY; 72125-TC; 80053; 82962; 84484; 85025; 85610; 85730; 93005; 93010; 99285-25

== ENCOUNTER 2021-07-08 11:24 | Inpatient (IN) | payer OTHER ==
[2021-07-08] MEDS ORDERED: SODIUM CHLORIDE 0.9% 1000 ML INFUS.BAG IV ONE (11:54)
[2021-07-08 13:08] LABS: VENOUS BASE EXCESS 0.5 mmol/L (-2-2); VENOUS O2 SATURATION 46.6 % (70-80); VENOUS PCO2 47.5 mmHg (38-52); VENOUS PH 7.364 (7.310-7.410)
[2021-07-08 13:21] LABS: BASO % 0.6 % (0-2.0); EOS % 0.6 % (0-4.5); HEMATOCRIT 38.7 % (32.4-45.2); HEMOGLOBIN 12.8 GM/dL (10.7-15.3); LYMPH % 24.3 % (8-40); MCHC 33.2 g/dl (32.0-36.0); MEAN CELL VOLUME 81.3 fl (80-96); MONO % 6.4 % (3.8-10.2); NEUT % 68.1 % (42.8-82.8); PLATELET COUNT 291 10^3/uL (134-434); RBC 4.76 M/mm3 (3.60-5.2); RDW 13.1 % (11.6-15.6); WHITE BLOOD COUNT 6.6 K/mm3 (4.0-10.0)
[2021-07-08 13:32] LABS: PH,URINE 5.5 (5.0-8.0); URINE APPEARANCE CLEAR; URINE BILIRUBIN NEGATIVE (NEGATIVE); URINE COLOR YELLOW; URINE GLUCOSE (UA) 3+ (NEGATIVE); URINE KETONE NEGATIVE (NEGATIVE); URINE LEUK ESTERASE NEGATIVE (NEGATIVE); URINE NITRITE NEGATIVE (NEGATIVE); URINE PROTEIN TRACE (NEGATIVE); URINE UROBILINOGEN 0.2 mg/dL (0.2-1.0)
[2021-07-08] MEDS ORDERED: SODIUM CHLORIDE 0.9% 500 ML INFUS.BAG IV ONE (13:35)
[2021-07-08 13:47] LABS: CHLORIDE 93 mmol/L (98-107); SODIUM 130 mmol/L (136-145)
[2021-07-08 13:50] LABS: ALBUMIN 3.6 g/dl (3.4-5.0); ANION GAP 11 MMOL/L (8-16); BLOOD UREA NITROGEN 26.7 mg/dL (7-18); CALCIUM 9.4 mg/dL (8.5-10.1); CO2 25 mmol/L (21-32)
[2021-07-08 13:53] LABS: CREATININE 1.5 mg/dL (0.55-1.3); SGOT/AST 12 U/L (15-37); SGPT/ALT 17 U/L (13-61)
[2021-07-08 13:54] LABS: BILIRUBIN,TOTAL 0.6 mg/dL (0.2-1)
[2021-07-08 13:55] LABS: TOT PROT 7.6 g/dl (6.4-8.2)
[2021-07-08 13:56] LABS: ALK PHOS 127 U/L (45-117)
[2021-07-08 14:14] LABS: GLUCOSE,RANDOM 512 mg/dL (74-106)
[2021-07-08] MEDS ORDERED: INSULIN REGULAR HUMAN 100 UNITS/ML *VIAL IVPUSH ONE (16:45)
[2021-07-08 17:14] LABS: LIPASE 301 U/L (73-393)
[2021-07-08] MEDS: ALBUTEROL SO4 HFA INHALER IH SCH (21:00)
[2021-07-08] MEDS: SENNOSIDES 8.6MG TABLET (FP) PO SCH (21:06)
[2021-07-08] MEDS: EZETIMIBE 10 MG TABLET (FP) PO SCH (21:07)
[2021-07-08] MEDS: HEPARIN NA (PORCINE) 5,000 UNITS/ML 1ML VIAL SQ SCH (21:10)
[2021-07-08] MEDS: OMEGA-3 ACID ETHYL ESTERS (FATTY-ACIDS) 1 GM CAPSULE (FP) PO SCH (21:10)
[2021-07-08] MEDS: INSULIN (LEVEMIR) 100 UNITS/ML UNITS SQ SCH (21:11)
[2021-07-08] MEDS: FLUTICASONE/SALMETEROL 100 MCG/50 MCG DISKUS IH SCH (21:45)
[2021-07-08] MEDS ORDERED: PATIENT'S OWN MEDICATION (NON-FORMULARY) (Insulin Lispro [Humalog] 100 UNIT/ML Cartridge) SQ SCH (22:00)
[2021-07-08] MEDS ORDERED: SENNOSIDES 8.6MG TABLET (FP) PO SCH (22:00)
[2021-07-08] MEDS ORDERED: PATIENT'S OWN MEDICATION (NON-FORMULARY) (Fluticasone Propion/Salmeterol [Wixela 500-50 In IH SCH (22:00)
[2021-07-09] MEDS: INSULIN (NOVOLOG) ASPART 100 UNITS/ML 10ML VIAL SQ SCH ×3 (06:18→17:09)
[2021-07-09] MEDS: INSULIN (LEVEMIR) 100 UNITS/ML UNITS SQ SCH ×2 (06:20→21:27)
[2021-07-09] MEDS: HEPARIN NA (PORCINE) 5,000 UNITS/ML 1ML VIAL SQ SCH ×3 (06:21→21:27)
[2021-07-09 07:10] VITALS: BMI 22.8
[2021-07-09] MEDS ORDERED: sitaGLIPtin PHOSPHATE 50 MG TABLET PO SCH (07:15)
[2021-07-09] MEDS: ALBUTEROL SO4 HFA INHALER IH SCH ×4 (09:23→21:27)
[2021-07-09] MEDS: OMEGA-3 ACID ETHYL ESTERS (FATTY-ACIDS) 1 GM CAPSULE (FP) PO SCH ×2 (09:28→21:29)
[2021-07-09] MEDS: amLODIPine BESYLATE 5 MG TABLET (FP) PO SCH (09:28)
[2021-07-09] MEDS: FLUTICASONE/SALMETEROL 100 MCG/50 MCG DISKUS IH SCH ×2 (11:43→21:27)
[2021-07-09 11:54] LABS: HEMATOCRIT 35.5 % (32.4-45.2); MCH 27.5 pg (25.7-33.7); MCHC 33.9 g/dl (32.0-36.0); MEAN CELL VOLUME 81.3 fl (80-96); MEAN PLT VOLUME 8.8 fl (7.5-11.1); PLATELET COUNT 254 10^3/uL (134-434); RBC 4.37 M/mm3 (3.60-5.2); RDW 13.2 % (11.6-15.6); WHITE BLOOD COUNT 6.1 K/mm3 (4.0-10.0)
[2021-07-09 12:07] LABS: CALCIUM 8.9 mg/dL (8.5-10.1)
[2021-07-09 12:08] LABS: BLOOD UREA NITROGEN 19.3 mg/dL (7-18); MAGNESIUM 1.8 mg/dL (1.8-2.4)
[2021-07-09 12:11] LABS: PHOSPHOROUS 3.1 mg/dL (2.5-4.9)
[2021-07-09 12:12] LABS: BILIRUBIN,TOTAL 0.5 mg/dL (0.2-1); TOT PROT 6.6 g/dl (6.4-8.2)
[2021-07-09] MEDS ORDERED: INSULIN (LEVEMIR) 100 UNITS/ML UNITS SQ ONE (12:16)
[2021-07-09] MEDS ORDERED: INSULIN (LEVEMIR) 100 UNITS/ML UNITS SQ SCH (12:17)
[2021-07-09] MEDS ORDERED: PT OWN MED DRAWER 7, Y5N ONE (12:28)
[2021-07-09] MEDS ORDERED: SODIUM CHLORIDE 1,000 ML IV SCH (12:30)
[2021-07-09] MEDS: TIOTROPIUM BROMIDE 2.5 MCG (SPIRIVA) RESPIMAT INHALER IH SCH (12:31)
[2021-07-09] MEDS ORDERED: INSULIN SLIDING SCALE (NOVOLOG) 1 VIAL SQ SCH ×2 (16:30→20:08)
[2021-07-09] MEDS ORDERED: INSULIN SLIDING SCALE (NOVOLOG) 1 VIAL SQ ONE (17:06)
[2021-07-09 18:50] LABS: URINE APPEARANCE CLEAR; URINE BILIRUBIN NEGATIVE (NEGATIVE); URINE COLOR YELLOW; URINE GLUCOSE (UA) 3+ (NEGATIVE); URINE KETONE NEGATIVE (NEGATIVE); URINE LEUK ESTERASE NEGATIVE (NEGATIVE); URINE NITRITE NEGATIVE (NEGATIVE); URINE PROTEIN TRACE (NEGATIVE); URINE UROBILINOGEN 0.2 mg/dL (0.2-1.0)
[2021-07-09] MEDS: INSULIN SLIDING SCALE (NOVOLOG) 1 VIAL SQ SCH (21:28)
[2021-07-09] MEDS: EZETIMIBE 10 MG TABLET (FP) PO SCH (21:28)
[2021-07-09] MEDS: SENNOSIDES 8.6MG TABLET (FP) PO SCH (21:29)
[2021-07-10] MEDS: INSULIN (LEVEMIR) 100 UNITS/ML UNITS SQ SCH ×2 (06:40→21:57)
[2021-07-10] MEDS: HEPARIN NA (PORCINE) 5,000 UNITS/ML 1ML VIAL SQ SCH ×3 (06:40→22:05)
[2021-07-10] MEDS: INSULIN SLIDING SCALE (NOVOLOG) 1 VIAL SQ SCH ×4 (06:41→21:58)
[2021-07-10] MEDS: sitaGLIPtin PHOSPHATE 50 MG TABLET PO SCH (06:41)
[2021-07-10] MEDS: INSULIN (NOVOLOG) ASPART 100 UNITS/ML 10ML VIAL SQ SCH ×3 (06:41→15:42)
[2021-07-10] MEDS: OMEGA-3 ACID ETHYL ESTERS (FATTY-ACIDS) 1 GM CAPSULE (FP) PO SCH ×2 (09:33→21:57)
[2021-07-10] MEDS: ALBUTEROL SO4 HFA INHALER IH SCH ×4 (09:33→21:56)
[2021-07-10] MEDS: TIOTROPIUM BROMIDE 2.5 MCG (SPIRIVA) RESPIMAT INHALER IH SCH (09:34)
[2021-07-10] MEDS: FLUTICASONE/SALMETEROL 100 MCG/50 MCG DISKUS IH SCH ×2 (09:34→21:56)
[2021-07-10] MEDS: amLODIPine BESYLATE 5 MG TABLET (FP) PO SCH (09:34)
[2021-07-10 10:49] LABS: CALCIUM 9.6 mg/dL (8.5-10.1)
[2021-07-10 10:50] LABS: BLOOD UREA NITROGEN 15.4 mg/dL (7-18)
[2021-07-10 10:52] LABS: CREATININE 0.9 mg/dL (0.55-1.3); URIC ACID 6.4 mg/dL (2.6-7.2)
[2021-07-10 10:53] LABS: PHOSPHOROUS 3.5 mg/dL (2.5-4.9); TOT PROT 6.5 g/dl (6.4-8.2)
[2021-07-10 10:54] LABS: BILIRUBIN,TOTAL 0.4 mg/dL (0.2-1)
[2021-07-10 12:03] LABS: MAGNESIUM 1.9 mg/dL (1.8-2.4)
[2021-07-10] MEDS: ACETAMINOPHEN 325 MG TABLET (FP) PO PRN (12:38)
[2021-07-10] MEDS: EZETIMIBE 10 MG TABLET (FP) PO SCH (21:58)
[2021-07-10] MEDS: SENNOSIDES 8.6MG TABLET (FP) PO SCH (21:58)
[2021-07-11] MEDS: INSULIN (NOVOLOG) ASPART 100 UNITS/ML 10ML VIAL SQ SCH ×2 (06:23→11:27)
[2021-07-11] MEDS: INSULIN (LEVEMIR) 100 UNITS/ML UNITS SQ SCH (06:24)
[2021-07-11] MEDS: HEPARIN NA (PORCINE) 5,000 UNITS/ML 1ML VIAL SQ SCH ×2 (06:24→13:46)
[2021-07-11] MEDS: INSULIN SLIDING SCALE (NOVOLOG) 1 VIAL SQ SCH ×2 (06:24→11:24)
[2021-07-11] MEDS: sitaGLIPtin PHOSPHATE 50 MG TABLET PO SCH (06:24)
[2021-07-11 08:22] LABS: HEMATOCRIT 35.3 % (32.4-45.2); HEMOGLOBIN 11.9 GM/dL (10.7-15.3); MCH 27.5 pg (25.7-33.7); MCHC 33.7 g/dl (32.0-36.0); MEAN CELL VOLUME 81.7 fl (80-96); MEAN PLT VOLUME 8.7 fl (7.5-11.1); PLATELET COUNT 245 10^3/uL (134-434); RBC 4.31 M/mm3 (3.60-5.2); RDW 13.3 % (11.6-15.6); WHITE BLOOD COUNT 5.5 K/mm3 (4.0-10.0)
[2021-07-11] MEDS: ALBUTEROL SO4 HFA INHALER IH SCH ×2 (08:27→11:27)
[2021-07-11 08:44] LABS: CALCIUM 9.1 mg/dL (8.5-10.1)
[2021-07-11 08:45] LABS: BLOOD UREA NITROGEN 11.8 mg/dL (7-18)
[2021-07-11 08:48] LABS: CREATININE 0.9 mg/dL (0.55-1.3)
[2021-07-11] MEDS: amLODIPine BESYLATE 5 MG TABLET (FP) PO SCH (10:28)
[2021-07-11] MEDS: ACETAMINOPHEN 325 MG TABLET (FP) PO PRN (10:29)
[2021-07-11] MEDS: OMEGA-3 ACID ETHYL ESTERS (FATTY-ACIDS) 1 GM CAPSULE (FP) PO SCH (10:32)
[2021-07-11] MEDS: TIOTROPIUM BROMIDE 2.5 MCG (SPIRIVA) RESPIMAT INHALER IH SCH (10:32)
[2021-07-11] MEDS: FLUTICASONE/SALMETEROL 100 MCG/50 MCG DISKUS IH SCH (10:33)
[2021-07-11] MEDS ORDERED: LISINOPRIL 5 MG TABLET PO SCH (12:15)
[2021-07-11 13:44] VITALS: BP 121/66; PULSE 88; TEMP 98.8
== END 2021-07-11 16:42 | disposition home health service (06) | DRG 638 ==
LOC: JER 11:24 → JERBED 15:32 → J5S 19:46
PROVIDERS: ADMIT Internal Medicine
DX: E11.65 Type 2 diabetes mellitus with hyperglycemia (principal); E87.1 Hypo-osmolality and hyponatremia; N17.9 Acute kidney failure, unspecified; I10 Essential (primary) hypertension; E78.5 Hyperlipidemia, unspecified; J44.9 Chronic obstructive pulmonary disease, unspecified; I25.10 Atherosclerotic heart disease of native coronary artery without angina pectoris; E87.5 Hyperkalemia; E11.42 Type 2 diabetes mellitus with diabetic polyneuropathy; E78.1 Pure hyperglyceridemia; M54.2 Cervicalgia; Z95.1 Presence of aortocoronary bypass graft
CPT/HCPCS: 36415; 71045-TC-FY; 72125-TC; 80048; 80053; 81003; 82010; 82570; 82803; 82962; 83036; 83605; 83690; 83735; 84100; 84156; 84443; 84484; 84550; 85025; 85027; 87086; 93005; 93010; 97116-GP; 97161-GP; 99285-25; C9803; J1644; U0003; U0005

== ENCOUNTER 2021-09-25 15:58 | Emergency (ER) | payer OTHER ==
[2021-09-25 16:34] VITALS: BP 148/57; PULSE 66; TEMP 98.3; BMI 23.4
== END 2021-09-25 17:50 | disposition home or self-care (01) ==
LOC: JER 15:58
DX: U07.1 COVID-19 (principal)
CPT/HCPCS: 99281-25

== ENCOUNTER 2021-12-26 12:25 | Emergency (ER) | payer OTHER ==
[2021-12-26 12:41] VITALS: BP 163/72; PULSE 78; TEMP 98.5; BMI 24.0
[2021-12-26] MEDS ORDERED: LORATADINE 10 MG TABLET PO ONE (13:53)
[2021-12-26] MEDS ORDERED: LORATADINE 10 MG TABLET ONE (13:59)
[2021-12-27 12:08] LABS: SARS-CoV-2 NAA Not Detected (Not Detected)
== END 2021-12-26 14:01 | disposition home or self-care (01) ==
LOC: JER 12:25
DX: N61.1 Abscess of the breast and nipple (principal); R09.89 Other specified symptoms and signs involving the circulatory and respiratory systems
CPT/HCPCS: 87070; 87205; 87651; 87804; 99285-25; C9803-CS; U0003; U0005

== ENCOUNTER 2022-01-02 12:22 | Emergency (ER) | payer OTHER ==
[2022-01-02 12:40] VITALS: BP 157/73; PULSE 66; TEMP 98.3; BMI 25.4
[2022-01-02] MEDS ORDERED: ACETAMINOPHEN 325 MG TABLET (FP) PO ONE (13:08)
[2022-01-02] MEDS ORDERED: ACETAMINOPHEN 325 MG TABLET (FP) ONE (13:09)
== END 2022-01-02 13:22 | disposition home or self-care (01) ==
LOC: JERFT 12:22
DX: N61.1 Abscess of the breast and nipple (principal); Z48.00 Encounter for change or removal of nonsurgical wound dressing
CPT/HCPCS: 99283-25

== ENCOUNTER 2022-09-18 12:42 | Inpatient (IN) | payer OTHER ==
[2022-09-18] MEDS ORDERED: LACTATED RINGERS SOLUTION 1000 ML INFUS.BAG IV ONE (14:32)
[2022-09-18] MEDS ORDERED: ACETAMINOPHEN 1000 MG/100 ML BAG IVPB ONE (14:32)
[2022-09-18] MEDS ORDERED: methylPREDNISolone NA SUCC 125 MG/2 ML VIAL IVPB ONE (14:35)
[2022-09-18] MEDS ORDERED: ALBUTEROL SO4 2.5/IPRATROPIUM 0.5 INH SOL 3 ML VIAL.NEB. NEB ONE (14:47)
[2022-09-18] MEDS ORDERED: ACETAMINOPHEN INJECTION 100 ML IVPB ONE (14:47)
[2022-09-18] MEDS ORDERED: methylPREDNISolone NA SUCC 125 MG/2 ML VIAL ONE (14:48)
[2022-09-18 15:07] LABS: BASO % 0.7 % (0-2.0); EOS % 0.1 % (0-4.5); HEMATOCRIT 29.4 % (32.4-45.2); HEMOGLOBIN 9.6 GM/dL (10.7-15.3); LYMPH % 13.3 % (8-40); MCH 27.3 pg (25.7-33.7); MCHC 32.7 g/dl (32.0-36.0); MEAN CELL VOLUME 83.6 fl (80-96); MEAN PLT VOLUME 7.8 fl (7.5-11.1); MONO % 8.1 % (3.8-10.2); NEUT % 77.8 % (42.8-82.8); PLATELET COUNT 374 10^3/uL (134-434); RBC 3.52 M/mm3 (3.60-5.2); RDW 13.3 % (11.6-15.6); WHITE BLOOD COUNT 11.4 K/mm3 (4.0-10.0)
[2022-09-18 15:10] LABS: INR 1.55 (0.83-1.09); PROTHROMBIN TIME (PATIENT) 17.9 SEC (9.7-13.0)
[2022-09-18] MEDS: ALBUTEROL SO4 2.5/IPRATROPIUM 0.5 INH SOL 3 ML VIAL.NEB. NEB SCH ×3 (15:10→15:43)
[2022-09-18 15:12] LABS: ACTIVATED PTT 30.3 SECONDS (25.2-36.5)
[2022-09-18 15:36] LABS: N-TERMINAL BNP 5133.2 pg/ml (5-450)
[2022-09-18] MEDS ORDERED: CEFTRIAXONE 1 GM in DEXTROSE 5%-WATER - 100 ML IVPB ONE (15:42)
[2022-09-18] MEDS ORDERED: AZITHROMYCIN IVPB 500 MG in DEXTROSE 5%-WATER - 250 ML IVPB ONE (15:42)
[2022-09-18 16:35] LABS: ALBUMIN 2.8 g/dl (3.4-5.0); BLOOD UREA NITROGEN 17.8 mg/dL (7-18); CALCIUM 8.6 mg/dL (8.5-10.1)
[2022-09-18 16:38] LABS: CREATININE 1.2 mg/dL (0.55-1.3)
[2022-09-18 16:40] LABS: BILIRUBIN,TOTAL 0.4 mg/dL (0.2-1); TOT PROT 6.8 g/dl (6.4-8.2)
[2022-09-18] MEDS ORDERED: AZITHROMYCIN IVPB 500 MG/250 ML BAG IVPB ONE (17:00)
[2022-09-18] MEDS ORDERED: CEFTRIAXONE 1 GM/50 ML BAG ONE (17:00)
[2022-09-18 19:45] LABS: EPI CELLS >36 /uL (0-25.1); HYALINE CASTS 0 /uL (0-3.1); URINE APPEARANCE CLEAR; URINE BACTERIA 695 /uL (0-1359); URINE BILIRUBIN NEGATIVE (NEGATIVE); URINE COLOR YELLOW; URINE GLUCOSE (UA) NEGATIVE (NEGATIVE); URINE KETONE NEGATIVE (NEGATIVE); URINE LEUK ESTERASE TRACE (NEGATIVE); URINE NITRITE NEGATIVE (NEGATIVE); URINE PROTEIN 2+ (NEGATIVE); URINE RBC 15 /uL (0-23.9); URINE WBC 61 /uL (0-25.8)
[2022-09-19] MEDS ORDERED: methylPREDNISolone NA SUCC 40 MG/1 ML VIAL ONE ×4 (02:44→17:16)
[2022-09-19] MEDS: methylPREDNISolone NA SUCC 40 MG/1 ML VIAL IVPUSH SCH ×3 (02:53→17:13)
[2022-09-19] MEDS ORDERED: HEPARIN NA (PORCINE) 5,000 UNITS/ML 1ML VIAL ONE ×3 (06:11→22:03)
[2022-09-19] MEDS: HEPARIN NA (PORCINE) 5,000 UNITS/ML 1ML VIAL SQ SCH ×3 (06:15→22:19)
[2022-09-19] MEDS: INSULIN SLIDING SCALE (NOVOLOG) 1 VIAL SQ SCH ×4 (08:02→22:19)
[2022-09-19] MEDS ORDERED: ALBUTEROL SO4 2.5/IPRATROPIUM 0.5 INH SOL 3 ML VIAL.NEB. NEB ONE ×2 (08:10→22:03)
[2022-09-19] MEDS ORDERED: CEFTRIAXONE 1 GM/50 ML BAG ONE (08:11)
[2022-09-19] MEDS ORDERED: AZITHROMYCIN IVPB 500 MG/250 ML BAG IVPB ONE (08:11)
[2022-09-19 08:44] LABS: HEMATOCRIT 28.5 % (32.4-45.2); HEMOGLOBIN 9.3 GM/dL (10.7-15.3); MCH 27.5 pg (25.7-33.7); MCHC 32.6 g/dl (32.0-36.0); MEAN CELL VOLUME 84.3 fl (80-96); MEAN PLT VOLUME 8.9 fl (7.5-11.1); PLATELET COUNT 325 10^3/uL (134-434); RBC 3.38 M/mm3 (3.60-5.2); RDW 13.3 % (11.6-15.6); WHITE BLOOD COUNT 8.9 K/mm3 (4.0-10.0)
[2022-09-19 09:10] LABS: CALCIUM 8.6 mg/dL (8.5-10.1)
[2022-09-19 09:11] LABS: BLOOD UREA NITROGEN 22.2 mg/dL (7-18); MAGNESIUM 1.9 mg/dL (1.8-2.4)
[2022-09-19 09:13] LABS: ALBUMIN 2.7 g/dl (3.4-5.0)
[2022-09-19 09:14] LABS: CREATININE 1.3 mg/dL (0.55-1.3); PHOSPHOROUS 3.4 mg/dL (2.5-4.9)
[2022-09-19 09:15] LABS: TOT PROT 6.7 g/dl (6.4-8.2)
[2022-09-19 09:16] LABS: BILIRUBIN,TOTAL 0.3 mg/dL (0.2-1)
[2022-09-19] MEDS: ALBUTEROL SO4 2.5/IPRATROPIUM 0.5 INH SOL 3 ML VIAL.NEB. NEB SCH ×4 (10:00→22:19)
[2022-09-19] MEDS: CEFTRIAXONE 1 GM in DEXTROSE 5%-WATER - 50 ML IVPB SCH (10:00)
[2022-09-19] MEDS: PANTOPRAZOLE 40 MG TABLET PO SCH (10:00)
[2022-09-19 10:25] LABS: ANISOCYTOSIS 0; HELMET CELLS 0; HOWELL-JOLLY BODIES 0; MACROCYTOSIS 0; OVALOCYTE 0; ROULEAU 0; SICKELED CELLS 0; TARGET CELLS 0; TEAR DROP CELLS 0; TOXIC GRANULATION 0
[2022-09-19] MEDS: AZITHROMYCIN IVPB 500 MG/250 ML BAG IVPB SCH (10:30)
[2022-09-19] MEDS: SERTRALINE HCL 50 MG TABLET (FP) PO SCH (12:27)
[2022-09-19] MEDS ORDERED: ZOLPIDEM TARTRATE 5 MG TABLET ONE (12:28)
[2022-09-19] MEDS ORDERED: ALBUTEROL SO4 HFA INHALER IH ONE (12:29)
[2022-09-19] MEDS ORDERED: ALBUTEROL SO4 HFA INHALER IH SCH (14:00)
[2022-09-19] MEDS: amLODIPine BESYLATE 2.5 MG TABLET (FP) PO SCH (15:21)
[2022-09-19] MEDS: NEBIVOLOL 10 MG TABLET (FP) PO SCH (15:22)
[2022-09-19] MEDS ORDERED: amLODIPine BESYLATE 2.5 MG TABLET (FP) ONE (15:30)
[2022-09-19] MEDS ORDERED: ALBUTEROL SO4 HFA INHALER IH PRN (16:36)
[2022-09-19] MEDS ORDERED: ATORVASTATIN CA 20 MG TABLET (FP) ONE (22:03)
[2022-09-19] MEDS: INSULIN (LEVEMIR) 100 UNITS/ML UNITS SQ SCH (22:19)
[2022-09-19] MEDS: ATORVASTATIN CA 20 MG TABLET (FP) PO SCH (22:19)
[2022-09-19] MEDS: EZETIMIBE 10 MG TABLET (FP) PO SCH (22:19)
[2022-09-20] MEDS: methylPREDNISolone NA SUCC 40 MG/1 ML VIAL IVPUSH SCH ×3 (02:14→21:29)
[2022-09-20 05:26] VITALS: BMI 26.4
[2022-09-20] MEDS: INSULIN SLIDING SCALE (NOVOLOG) 1 VIAL SQ SCH ×4 (06:36→21:49)
[2022-09-20] MEDS: INSULIN (LEVEMIR) 100 UNITS/ML UNITS SQ SCH ×2 (06:38→21:45)
[2022-09-20] MEDS: HEPARIN NA (PORCINE) 5,000 UNITS/ML 1ML VIAL SQ SCH ×3 (06:43→21:30)
[2022-09-20] MEDS: ALBUTEROL SO4 2.5/IPRATROPIUM 0.5 INH SOL 3 ML VIAL.NEB. NEB SCH ×4 (07:20→20:06)
[2022-09-20] MEDS: CEFTRIAXONE 1 GM in DEXTROSE 5%-WATER - 50 ML IVPB SCH (10:29)
[2022-09-20] MEDS: amLODIPine BESYLATE 2.5 MG TABLET (FP) PO SCH (10:30)
[2022-09-20] MEDS: PANTOPRAZOLE 40 MG TABLET PO SCH (10:30)
[2022-09-20] MEDS: SERTRALINE HCL 50 MG TABLET (FP) PO SCH (10:30)
[2022-09-20] MEDS: AZITHROMYCIN IVPB 500 MG/250 ML BAG IVPB SCH (10:32)
[2022-09-20 11:05] LABS: HEMATOCRIT 27.2 % (32.4-45.2); HEMOGLOBIN 8.9 GM/dL (10.7-15.3); MCH 27.3 pg (25.7-33.7); MCHC 32.6 g/dl (32.0-36.0); MEAN CELL VOLUME 83.9 fl (80-96); MEAN PLT VOLUME 8.7 fl (7.5-11.1); PLATELET COUNT 440 10^3/uL (134-434); RBC 3.24 M/mm3 (3.60-5.2); RDW 13.5 % (11.6-15.6); WHITE BLOOD COUNT 13.3 K/mm3 (4.0-10.0)
[2022-09-20 11:31] LABS: CHLORIDE 104 mmol/L (98-107); SODIUM 137 mmol/L (136-145)
[2022-09-20 11:34] LABS: CALCIUM 8.9 mg/dL (8.5-10.1)
[2022-09-20 11:36] LABS: ANION GAP 11 MMOL/L (8-16); CO2 23 mmol/L (21-32)
[2022-09-20 11:38] LABS: CREATININE 1.8 mg/dL (0.55-1.3)
[2022-09-20 11:47] LABS: GLUCOSE,RANDOM 435 mg/dL (74-106)
[2022-09-20 12:53] LABS: ANISOCYTOSIS 1+; MACROCYTOSIS 1+
[2022-09-20] MEDS: NEBIVOLOL 10 MG TABLET (FP) PO SCH (14:50)
[2022-09-20] MEDS ORDERED: PNEUMOC 20-VAL CONJ-DIP CRM/PF 0.5 ML SYRINGE IM ONE (15:00)
[2022-09-20] MEDS: ATORVASTATIN CA 20 MG TABLET (FP) PO SCH (21:30)
[2022-09-20] MEDS: EZETIMIBE 10 MG TABLET (FP) PO SCH (23:50)
[2022-09-21] MEDS: HEPARIN NA (PORCINE) 5,000 UNITS/ML 1ML VIAL SQ SCH ×3 (05:27→21:59)
[2022-09-21] MEDS: INSULIN (LEVEMIR) 100 UNITS/ML UNITS SQ SCH ×2 (06:20→21:57)
[2022-09-21] MEDS: INSULIN SLIDING SCALE (NOVOLOG) 1 VIAL SQ SCH ×4 (06:22→21:52)
[2022-09-21] MEDS: ALBUTEROL SO4 2.5/IPRATROPIUM 0.5 INH SOL 3 ML VIAL.NEB. NEB SCH ×4 (07:59→20:17)
[2022-09-21 10:08] LABS: HEMATOCRIT 29.5 % (32.4-45.2); HEMOGLOBIN 9.5 GM/dL (10.7-15.3); MCH 27.2 pg (25.7-33.7); MCHC 32.4 g/dl (32.0-36.0); MEAN CELL VOLUME 83.9 fl (80-96); PLATELET COUNT 402 10^3/uL (134-434); RBC 3.51 M/mm3 (3.60-5.2); RDW 13.3 % (11.6-15.6); WHITE BLOOD COUNT 14.9 K/mm3 (4.0-10.0)
[2022-09-21 10:35] LABS: BLOOD UREA NITROGEN 38.3 mg/dL (7-18); CALCIUM 9.3 mg/dL (8.5-10.1); MAGNESIUM 2.2 mg/dL (1.8-2.4)
[2022-09-21 10:38] LABS: CREATININE 1.5 mg/dL (0.55-1.3); PHOSPHOROUS 2.8 mg/dL (2.5-4.9)
[2022-09-21 10:40] LABS: BILIRUBIN,TOTAL 0.5 mg/dL (0.2-1)
[2022-09-21] MEDS: SERTRALINE HCL 50 MG TABLET (FP) PO SCH (11:07)
[2022-09-21] MEDS: amLODIPine BESYLATE 2.5 MG TABLET (FP) PO SCH (11:07)
[2022-09-21] MEDS: methylPREDNISolone NA SUCC 40 MG/1 ML VIAL IVPUSH SCH ×2 (11:07→21:58)
[2022-09-21] MEDS: PANTOPRAZOLE 40 MG TABLET PO SCH (11:10)
[2022-09-21] MEDS: CEFTRIAXONE 1 GM in DEXTROSE 5%-WATER - 50 ML IVPB SCH (11:10)
[2022-09-21] MEDS: NEBIVOLOL 10 MG TABLET (FP) PO SCH (11:10)
[2022-09-21] MEDS: AZITHROMYCIN IVPB 500 MG/250 ML BAG IVPB SCH (11:12)
[2022-09-21 15:24] LABS: ANISOCYTOSIS 0; HELMET CELLS 0; HOWELL-JOLLY BODIES 0; MACROCYTOSIS 0; OVALOCYTE 0; ROULEAU 0; SICKELED CELLS 0; TARGET CELLS 0; TEAR DROP CELLS 0; TOXIC GRANULATION 0
[2022-09-21] MEDS: guaiFENesin 600 MG TABLET.ER (FP) PO SCH (21:58)
[2022-09-21] MEDS: ATORVASTATIN CA 20 MG TABLET (FP) PO SCH (21:59)
[2022-09-21] MEDS ORDERED: INSULIN (LEVEMIR) 100 UNITS/ML UNITS SQ SCH (22:00)
[2022-09-21] MEDS: EZETIMIBE 10 MG TABLET (FP) PO SCH (22:55)
[2022-09-22] MEDS: INSULIN (LEVEMIR) 100 UNITS/ML UNITS SQ SCH ×2 (06:46→22:57)
[2022-09-22] MEDS: INSULIN SLIDING SCALE (NOVOLOG) 1 VIAL SQ SCH ×4 (06:47→23:18)
[2022-09-22] MEDS: HEPARIN NA (PORCINE) 5,000 UNITS/ML 1ML VIAL SQ SCH ×3 (06:49→22:58)
[2022-09-22] MEDS: ALBUTEROL SO4 2.5/IPRATROPIUM 0.5 INH SOL 3 ML VIAL.NEB. NEB SCH ×4 (07:50→20:08)
[2022-09-22] MEDS: CEFTRIAXONE 1 GM in DEXTROSE 5%-WATER - 50 ML IVPB SCH (09:31)
[2022-09-22] MEDS: PANTOPRAZOLE 40 MG TABLET PO SCH (09:32)
[2022-09-22] MEDS: methylPREDNISolone NA SUCC 40 MG/1 ML VIAL IVPUSH SCH (09:32)
[2022-09-22] MEDS: guaiFENesin 600 MG TABLET.ER (FP) PO SCH ×2 (09:32→22:57)
[2022-09-22] MEDS: SERTRALINE HCL 50 MG TABLET (FP) PO SCH (09:32)
[2022-09-22] MEDS: amLODIPine BESYLATE 2.5 MG TABLET (FP) PO SCH (09:32)
[2022-09-22] MEDS: NEBIVOLOL 10 MG TABLET (FP) PO SCH (09:35)
[2022-09-22 09:52] LABS: HEMATOCRIT 30.5 % (32.4-45.2); MCH 27.3 pg (25.7-33.7); MCHC 32.8 g/dl (32.0-36.0); MEAN CELL VOLUME 83.3 fl (80-96); MEAN PLT VOLUME 8.3 fl (7.5-11.1); PLATELET COUNT 408 10^3/uL (134-434); RBC 3.66 M/mm3 (3.60-5.2); RDW 13.1 % (11.6-15.6); WHITE BLOOD COUNT 15.4 K/mm3 (4.0-10.0)
[2022-09-22 10:17] LABS: ALBUMIN 2.7 g/dl (3.4-5.0); BLOOD UREA NITROGEN 34.4 mg/dL (7-18); CALCIUM 9.1 mg/dL (8.5-10.1); MAGNESIUM 1.9 mg/dL (1.8-2.4)
[2022-09-22 10:19] LABS: PHOSPHOROUS 3.2 mg/dL (2.5-4.9)
[2022-09-22 10:20] LABS: CREATININE 1.3 mg/dL (0.55-1.3)
[2022-09-22 10:21] LABS: BILIRUBIN,TOTAL 0.3 mg/dL (0.2-1); TOT PROT 6.5 g/dl (6.4-8.2)
[2022-09-22] MEDS: AZITHROMYCIN IVPB 500 MG/250 ML BAG IVPB SCH (10:37)
[2022-09-22 10:53] LABS: ANISOCYTOSIS 0; MACROCYTOSIS 0
[2022-09-22] MEDS ORDERED: INSULIN (NOVOLOG) ASPART 100 UNITS/ML 10ML VIAL ONE (11:16)
[2022-09-22] MEDS: ATORVASTATIN CA 20 MG TABLET (FP) PO SCH (22:57)
[2022-09-22] MEDS: INSULIN (NOVOLOG) ASPART 100 UNITS/ML 10ML VIAL SQ SCH (22:58)
[2022-09-22] MEDS: EZETIMIBE 10 MG TABLET (FP) PO SCH (23:11)
[2022-09-23] MEDS: INSULIN SLIDING SCALE (NOVOLOG) 1 VIAL SQ SCH ×2 (06:11→11:27)
[2022-09-23] MEDS: INSULIN (LEVEMIR) 100 UNITS/ML UNITS SQ SCH (06:12)
[2022-09-23] MEDS: HEPARIN NA (PORCINE) 5,000 UNITS/ML 1ML VIAL SQ SCH ×2 (06:12→13:18)
[2022-09-23] MEDS: INSULIN (NOVOLOG) ASPART 100 UNITS/ML 10ML VIAL SQ SCH ×2 (06:13→13:18)
[2022-09-23 06:22] VITALS: RESP 18
[2022-09-23] MEDS: ALBUTEROL SO4 2.5/IPRATROPIUM 0.5 INH SOL 3 ML VIAL.NEB. NEB SCH ×2 (08:32→11:26)
[2022-09-23 09:40] LABS: HEMATOCRIT 34.9 % (32.4-45.2); HEMOGLOBIN 11.5 GM/dL (10.7-15.3); MCH 27.6 pg (25.7-33.7); MCHC 33.1 g/dl (32.0-36.0); MEAN CELL VOLUME 83.4 fl (80-96); MEAN PLT VOLUME 8.3 fl (7.5-11.1); PLATELET COUNT 478 10^3/uL (134-434); RBC 4.18 M/mm3 (3.60-5.2); RDW 13.1 % (11.6-15.6)
[2022-09-23] MEDS ORDERED: predniSONE 20 MG TABLET (UD) PO SCH (10:00)
[2022-09-23 10:04] LABS: CALCIUM 9.5 mg/dL (8.5-10.1)
[2022-09-23 10:05] LABS: BLOOD UREA NITROGEN 34.2 mg/dL (7-18); MAGNESIUM 1.9 mg/dL (1.8-2.4)
[2022-09-23 10:06] LABS: CREATININE 1.3 mg/dL (0.55-1.3); PHOSPHOROUS 4.5 mg/dL (2.5-4.9)
[2022-09-23 10:08] LABS: BILIRUBIN,TOTAL 0.3 mg/dL (0.2-1); TOT PROT 6.9 g/dl (6.4-8.2)
[2022-09-23] MEDS: CEFTRIAXONE 1 GM in DEXTROSE 5%-WATER - 50 ML IVPB SCH (10:19)
[2022-09-23] MEDS: guaiFENesin 600 MG TABLET.ER (FP) PO SCH (10:20)
[2022-09-23] MEDS: AZITHROMYCIN IVPB 500 MG/250 ML BAG IVPB SCH (10:20)
[2022-09-23] MEDS: NEBIVOLOL 10 MG TABLET (FP) PO SCH (10:20)
[2022-09-23] MEDS: PANTOPRAZOLE 40 MG TABLET PO SCH (10:20)
[2022-09-23] MEDS: amLODIPine BESYLATE 2.5 MG TABLET (FP) PO SCH (10:20)
[2022-09-23] MEDS: SERTRALINE HCL 50 MG TABLET (FP) PO SCH (10:20)
[2022-09-23 10:32] LABS: ANISOCYTOSIS 3+; MACROCYTOSIS 0
[2022-09-23 11:56] VITALS: BP 141/65; PULSE 81; TEMP 98.9
== END 2022-09-23 14:25 | disposition home health service (06) | DRG 190 ==
LOC: JER 12:42 → JERBED 19:53 → J7W 09-20 00:04
PROVIDERS: ADMIT Internal Medicine; ATTEND Internal Medicine
DX: J44.1 Chronic obstructive pulmonary disease with (acute) exacerbation (principal); J18.9 Pneumonia, unspecified organism; I50.30 Unspecified diastolic (congestive) heart failure; J44.0 Chronic obstructive pulmonary disease with (acute) lower respiratory infection; I25.10 Atherosclerotic heart disease of native coronary artery without angina pectoris; E11.65 Type 2 diabetes mellitus with hyperglycemia; E78.5 Hyperlipidemia, unspecified; Z95.5 Presence of coronary angioplasty implant and graft; I11.0 Hypertensive heart disease with heart failure
CPT/HCPCS: 0241U-QW; 36415; 71045-TC-FY; 71250-TC; 74176-TC; 80048; 80053; 81003; 82962; 83690; 83735; 83880; 84100; 84484; 85025; 85610; 85730; 86480; 87040; 87070; 87086; 87205; 87899; 90677; 93005; 93010; 93306-TC; 94010; 94640; 99285-25; J1644

== ENCOUNTER 2023-06-13 10:29 | Emergency (ER) | payer OTHER ==
[2023-06-13 10:43] VITALS: RESP 18; BMI 26.2
[2023-06-13] MEDS ORDERED: SODIUM CHLORIDE 1,000 ML IV STA (11:45)
[2023-06-13] MEDS ORDERED: ACETAMINOPHEN 1000 MG/100 ML BAG IVPB ONE (13:05)
[2023-06-13] MEDS ORDERED: ACETAMINOPHEN INJECTION 100 ML IVPB ONE (13:10)
[2023-06-13 13:26] LABS: BASO % 0.4 % (0-2.0); EOS % 0.1 % (0-4.5); HEMATOCRIT 40.7 % (32.4-45.2); HEMOGLOBIN 13.4 GM/dL (10.7-15.3); LYMPH % 27.8 % (8-40); MCH 27.3 pg (25.7-33.7); MONO % 12.3 % (3.8-10.2); NEUT % 59.4 % (42.8-82.8); PLATELET COUNT 238 10^3/uL (134-434); RDW 14.6 % (11.6-15.6); WHITE BLOOD COUNT 6.6 K/mm3 (4.0-10.0)
[2023-06-13 13:29] LABS: EPI CELLS 19 /uL (0-25.1); HYALINE CASTS 0 /uL (0-3.1); PH,URINE 5.5 (5.0-8.0); URINE APPEARANCE CLEAR; URINE BACTERIA 103 /uL (0-1359); URINE BILIRUBIN NEGATIVE (NEGATIVE); URINE COLOR YELLOW; URINE GLUCOSE (UA) 3+ (NEGATIVE); URINE KETONE NEGATIVE (NEGATIVE); URINE LEUK ESTERASE NEGATIVE (NEGATIVE); URINE NITRITE NEGATIVE (NEGATIVE); URINE PROTEIN 2+ (NEGATIVE); URINE RBC 9 /uL (0-23.9); URINE UROBILINOGEN 0.2 mg/dL (0.2-1.0); URINE WBC 25 /uL (0-25.8)
[2023-06-13 13:51] LABS: POTASSIUM 5.3 mmol/L (3.5-5.1)
[2023-06-13 13:52] LABS: CALCIUM 9.3 mg/dL (8.5-10.1)
[2023-06-13 13:53] LABS: ALBUMIN 4.1 g/dl (3.4-5.0); BLOOD UREA NITROGEN 31.6 mg/dL (7-18)
[2023-06-13 13:56] LABS: CREATININE 1.7 mg/dL (0.55-1.3)
[2023-06-13 13:58] LABS: BILIRUBIN,TOTAL 0.5 mg/dL (0.2-1)
[2023-06-13 18:21] VITALS: BP 154/58; PULSE 69; TEMP 98.5
== END 2023-06-13 18:52 | disposition home or self-care (01) ==
LOC: JER 10:29
PROC: 3E033NZ Introduction of Analgesics, Hypnotics, Sedatives into Peripheral Vein, Percutaneous Approach (ICD-10-PCS; principal; 2023-06-13)
PROC: 3E0337Z Introduction of Electrolytic and Water Balance Substance into Peripheral Vein, Percutaneous Approach (ICD-10-PCS; 2023-06-13)
DX: R19.7 Diarrhea, unspecified (principal); R10.10 Upper abdominal pain, unspecified; M54.50 Low back pain, unspecified; R05.9 Cough, unspecified; M79.10 Myalgia, unspecified site; R63.0 Anorexia; R53.83 Other fatigue; N18.30 Chronic kidney disease, stage 3 unspecified; U07.1 COVID-19
CPT/HCPCS: 0241U-QW; 36415; 71045-TC-FY; 74176-TC; 80053; 81003; 85025; 87086; 93005; 93010; 99285-25

== ENCOUNTER 2024-04-08 10:57 | Observation (INO) | payer OTHER ==
[2024-04-08] MEDS ORDERED: ACETAMINOPHEN INJECTION 100 ML IVPB ONE (12:31)
[2024-04-08] MEDS: ACETAMINOPHEN 1000 MG/100 ML BAG IVPB ONE (12:39)
[2024-04-08 12:40] LABS: BASO % 1.2 % (0-2.0); EOS % 0.9 % (0-4.5); HEMATOCRIT 33.9 % (32.4-45.2); LYMPH % 18.9 % (8-40); MCH 28.1 pg (25.7-33.7); MCHC 32.4 g/dl (32.0-36.0); MEAN CELL VOLUME 86.7 fl (80-96); MEAN PLT VOLUME 9.1 fl (7.5-11.1); PLATELET COUNT 297 10^3/uL (134-434); RBC 3.91 M/mm3 (3.60-5.2); RDW 15.8 % (11.6-15.6); WHITE BLOOD COUNT 8.1 K/mm3 (4.0-10.0)
[2024-04-08 12:58] LABS: POTASSIUM 5.1 mmol/L (3.5-5.1)
[2024-04-08 13:00] LABS: ALBUMIN 3.7 g/dl (3.4-5.0); CALCIUM 9.2 mg/dL (8.5-10.1)
[2024-04-08 13:01] LABS: BLOOD UREA NITROGEN 30.3 mg/dL (7-18)
[2024-04-08 13:03] LABS: CREATININE 1.8 mg/dL (0.55-1.3)
[2024-04-08 13:05] LABS: BILIRUBIN,TOTAL 0.8 mg/dL (0.2-1); TOT PROT 7.8 g/dl (6.4-8.2)
[2024-04-08 13:08] LABS: URIC ACID 7.1 mg/dL (2.6-7.2)
[2024-04-08] MEDS ORDERED: ACETAMINOPHEN 500 MG TABLET (FP) PO PRN (16:20)
[2024-04-08] MEDS ORDERED: MORPHINE SULFATE 2 MG/ML SYRINGE ONE (16:46)
[2024-04-08] MEDS: morphine CARPU-JECT 4 MG/1 ML DISP.SYRIN IVPUSH ONE (16:56)
[2024-04-08] MEDS ORDERED: MORPHINE SULFATE 2 MG/ML SYRINGE IVPUSH PRN (17:14)
[2024-04-08] MEDS ORDERED: INSULIN ASPART SLIDING SCALE (NOVOLOG) 1 VIAL SQ ONE (17:41)
[2024-04-08] MEDS: INSULIN (NOVOLOG) ASPART 100 UNITS/ML 10ML VIAL SQ SCH (17:44)
[2024-04-08 19:51] VITALS: BMI 26.1
[2024-04-08] MEDS ORDERED: PATIENT'S OWN MEDICATION (NON-FORMULARY) (Colesevelam Hcl [Welchol] 625 MG Tablet) PO SCH (22:00)
[2024-04-08] MEDS: INSULIN ASPART SLIDING SCALE (NOVOLOG) 1 VIAL SQ SCH (22:32)
[2024-04-08] MEDS: ASPIRIN 81 MG CHEWABLE TABLETS PO SCH (22:33)
[2024-04-08] MEDS: HEPARIN NA (PORCINE) 5,000 UNITS/ML 1ML VIAL SQ SCH (22:33)
[2024-04-08] MEDS: EZETIMIBE 10 MG TABLET (FP) PO SCH (22:33)
[2024-04-09] MEDS: MAG HYDROX/AL HYDROX/SIMETH 30 ML UNIT-DOSE CUP PO ONE ×2 (00:57→06:29)
[2024-04-09] MEDS: MAG HYDROX/AL HYDROX/SIMETH -MYLANTA- ORAL SUSPENSION PO ONE (06:59)
[2024-04-09] MEDS: INSULIN (LEVEMIR) 100 UNITS/ML UNITS SQ SCH (07:02)
[2024-04-09 09:34] LABS: BASO % 0.6 % (0-2.0); EOS % 1.9 % (0-4.5); HEMATOCRIT 36.4 % (32.4-45.2); HEMOGLOBIN 11.9 GM/dL (10.7-15.3); LYMPH % 16.3 % (8-40); MCH 27.9 pg (25.7-33.7); MCHC 32.6 g/dl (32.0-36.0); MEAN CELL VOLUME 85.4 fl (80-96); MEAN PLT VOLUME 8.6 fl (7.5-11.1); MONO % 6.1 % (3.8-10.2); NEUT % 75.1 % (42.8-82.8); PLATELET COUNT 295 10^3/uL (134-434); RBC 4.26 M/mm3 (3.60-5.2); RDW 15.8 % (11.6-15.6); WHITE BLOOD COUNT 7.9 K/mm3 (4.0-10.0)
[2024-04-09] MEDS: SERTRALINE HCL 50 MG TABLET (FP) PO SCH (09:53)
[2024-04-09] MEDS: FENOFIBRIC ACID 45 MG CAP PO SCH (09:53)
[2024-04-09] MEDS: NEBIVOLOL 10 MG TABLET (FP) PO SCH (09:53)
[2024-04-09] MEDS: amLODIPine BESYLATE 5 MG TABLET (FP) PO SCH (09:53)
[2024-04-09] MEDS ORDERED: FLUTICASONE/UMECLIDIN/VILANTER(200-62.5-25 TRELEGY ELLIPTA) INAHLER IH SCH (10:00)
[2024-04-09] MEDS ORDERED: TIOTROPIUM BROMIDE 2.5 MCG (SPIRIVA) RESPIMAT INHALER IH SCH (10:00)
[2024-04-09 10:19] LABS: POTASSIUM 4.2 mmol/L (3.5-5.1)
[2024-04-09 10:25] LABS: BLOOD UREA NITROGEN 19.5 mg/dL (7-18); CALCIUM 9.3 mg/dL (8.5-10.1)
[2024-04-09 10:29] LABS: CREATININE 1.4 mg/dL (0.55-1.3)
[2024-04-09] MEDS: FLUTICASONE/UMECLIDIN/VILANTER(200-62.5-25 TRELEGY ELLIPTA) INAHLER IH SCH (11:06)
[2024-04-09] MEDS: SODIUM CHLORIDE 500 ML IV STA (11:47)
[2024-04-09] MEDS: EMPAGLIFLOZIN (JARDIANCE) 10 MG TABLET PO SCH (13:34)
[2024-04-09 15:45] VITALS: BP 156/89; PULSE 73; RESP 18; TEMP 98.1
== END 2024-04-09 15:00 | disposition home or self-care (01) ==
LOC: JER 10:57 → JERBED 15:41 → UNDOADMOB 15:41 → INTOOBSV 16:16 → OBSVTOIN 16:16 → JERBED 19:08 → J5S 19:08 → JERBED 04-09 10:46 → J5S 04-09 10:46
PROVIDERS: ADMIT Internal Medicine
PROC: 3E033NZ Introduction of Analgesics, Hypnotics, Sedatives into Peripheral Vein, Percutaneous Approach (ICD-10-PCS; principal; 2024-04-09)
PROC: 3E023GC Introduction of Other Therapeutic Substance into Muscle, Percutaneous Approach (ICD-10-PCS; 2024-04-09)
PROC: 3E013VG Introduction of Insulin into Subcutaneous Tissue, Percutaneous Approach (ICD-10-PCS; 2024-04-09)
PROC: 3E0337Z Introduction of Electrolytic and Water Balance Substance into Peripheral Vein, Percutaneous Approach (ICD-10-PCS; 2024-04-09)
DX: M17.11 Unilateral primary osteoarthritis, right knee (principal); M71.21 Synovial cyst of popliteal space [Baker], right knee; J44.9 Chronic obstructive pulmonary disease, unspecified; I50.30 Unspecified diastolic (congestive) heart failure; Z95.5 Presence of coronary angioplasty implant and graft; Z95.1 Presence of aortocoronary bypass graft; I25.10 Atherosclerotic heart disease of native coronary artery without angina pectoris; E78.5 Hyperlipidemia, unspecified; E23.2 Diabetes insipidus; Z87.891 Personal history of nicotine dependence; I35.0 Nonrheumatic aortic (valve) stenosis
CPT/HCPCS: 36415; 73562-TC-RT-FY; 80048; 80053; 82962; 84550; 85025; 93005; 93010; 93971-TC; 96361; 96372; 96374; 97116-GP; 97161-GP; 99285-25; G0378; J0131; J1644

== ENCOUNTER 2024-04-18 20:42 | Emergency (ER) | payer OTHER ==
[2024-04-18 20:49] VITALS: BP 164/54; PULSE 72; RESP 18; TEMP 98; BMI 29.0
[2024-04-18] MEDS ORDERED: ALBUTEROL SO4 2.5/IPRATROPIUM 0.5 INH SOL 3 ML VIAL.NEB. NEB ONE (21:53)
[2024-04-18] MEDS: ALBUTEROL SO4 2.5/IPRATROPIUM 0.5 INH SOL 3 ML VIAL.NEB. NEB SCH (22:00)
[2024-04-18 22:19] LABS: VENOUS BASE EXCESS -4.7 mmol/L (-2-2); VENOUS O2 SATURATION 52.8 % (70-80); VENOUS PCO2 41.4 mmHg (38-52); VENOUS PH 7.324 (7.310-7.410)
[2024-04-18] MEDS: LACTATED RINGERS SOLUTION 1000 ML INFUS.BAG IV ONE (22:20)
[2024-04-18 22:21] LABS: BASO % 0.4 % (0-2.0); EOS % 0.5 % (0-4.5); HEMATOCRIT 39.4 % (32.4-45.2); HEMOGLOBIN 13.1 GM/dL (10.7-15.3); LYMPH % 11.1 % (8-40); MCH 27.9 pg (25.7-33.7); MCHC 33.3 g/dl (32.0-36.0); MEAN CELL VOLUME 83.7 fl (80-96); MEAN PLT VOLUME 8.9 fl (7.5-11.1); MONO % 4.6 % (3.8-10.2); NEUT % 83.4 % (42.8-82.8); PLATELET COUNT 322 10^3/uL (134-434); RBC 4.71 M/mm3 (3.60-5.2); RDW 15.1 % (11.6-15.6); WHITE BLOOD COUNT 12.8 K/mm3 (4.0-10.0)
[2024-04-18 22:43] LABS: POTASSIUM 4.9 mmol/L (3.5-5.1)
[2024-04-18 22:44] LABS: CALCIUM 9.6 mg/dL (8.5-10.1)
[2024-04-18 22:45] LABS: ALBUMIN 4.2 g/dl (3.4-5.0); MAGNESIUM 2.1 mg/dL (1.8-2.4)
[2024-04-18 22:48] LABS: CREATININE 1.9 mg/dL (0.55-1.3); PHOSPHOROUS 3.2 mg/dL (2.5-4.9)
[2024-04-18 22:49] LABS: BILIRUBIN,TOTAL 0.5 mg/dL (0.2-1); TOT PROT 8.4 g/dl (6.4-8.2)
[2024-04-18 22:53] LABS: BLOOD UREA NITROGEN 49.3 mg/dL (7-18); N-TERMINAL BNP 1761.4 pg/ml (5-450)
[2024-04-18] MEDS ORDERED: INSULIN ASPART SLIDING SCALE (NOVOLOG) 1 VIAL SQ ONE ×2 (23:15→23:16)
[2024-04-18 23:16] LABS: EPI CELLS 7 /uL (0-25.1); HYALINE CASTS 0 /uL (0-3.1); PH,URINE 5.5 (5.0-8.0); URINE APPEARANCE CLEAR; URINE BACTERIA 161 /uL (0-1359); URINE BILIRUBIN NEGATIVE (NEGATIVE); URINE COLOR YELLOW; URINE GLUCOSE (UA) 3+ (NEGATIVE); URINE KETONE NEGATIVE (NEGATIVE); URINE LEUK ESTERASE NEGATIVE (NEGATIVE); URINE NITRITE NEGATIVE (NEGATIVE); URINE PROTEIN 2+ (NEGATIVE); URINE RBC 6 /uL (0-23.9); URINE UROBILINOGEN 0.2 mg/dL (0.2-1.0); URINE WBC 13 /uL (0-25.8)
[2024-04-18] MEDS: INSULIN (NOVOLOG) ASPART 100 UNITS/ML 10ML VIAL SQ ONE (23:21)
== END 2024-04-19 00:27 | disposition home or self-care (01) ==
LOC: JER 20:42
PROC: 3E013VG Introduction of Insulin into Subcutaneous Tissue, Percutaneous Approach (ICD-10-PCS; principal; 2024-04-18)
DX: R07.2 Precordial pain (principal); R06.02 Shortness of breath; R30.0 Dysuria; R35.0 Frequency of micturition; E11.65 Type 2 diabetes mellitus with hyperglycemia; Z79.4 Long term (current) use of insulin
CPT/HCPCS: 71045-TC-FY; 80053; 81003; 82010; 82803; 82962; 83735; 83880; 83930; 84100; 84484; 85025; 86850; 86900; 86901; 87086; 93005; 93010; 96372; 99285-25

== ENCOUNTER 2024-06-20 12:33 | Emergency (ER) | payer OTHER ==
[2024-06-20 12:40] VITALS: BP 162/65; PULSE 77; RESP 16; TEMP 98.1; BMI 26.0
[2024-06-20] MEDS ORDERED: ACETAMINOPHEN INJECTION 100 ML ONE (14:05)
[2024-06-20 14:09] LABS: EOS % 0.7 % (0-4.5); HEMATOCRIT 37.2 % (32.4-45.2); HEMOGLOBIN 11.9 GM/dL (10.7-15.3); LYMPH % 19.1 % (8-40); MCH 27.3 pg (25.7-33.7); MCHC 31.9 g/dl (32.0-36.0); MEAN CELL VOLUME 85.4 fl (80-96); MEAN PLT VOLUME 8.7 fl (7.5-11.1); MONO % 7.7 % (3.8-10.2); NEUT % 71.5 % (42.8-82.8); PLATELET COUNT 284 10^3/uL (134-434); RBC 4.35 M/mm3 (3.60-5.2); RDW 15.3 % (11.6-15.6); WHITE BLOOD COUNT 9.9 K/mm3 (4.0-10.0)
[2024-06-20] MEDS: ACETAMINOPHEN 1000 MG/100 ML BAG IVPB ONE (14:12)
[2024-06-20 14:16] LABS: INR 1.13 (0.83-1.09); PROTHROMBIN TIME (PATIENT) 12.9 SEC (9.7-13.0)
[2024-06-20 14:17] LABS: POTASSIUM 4.4 mmol/L (3.5-5.1)
[2024-06-20 14:18] LABS: ACTIVATED PTT 28.7 SECONDS (25.2-36.5)
[2024-06-20 14:19] LABS: ALBUMIN 3.8 g/dl (3.4-5.0); CALCIUM 9.5 mg/dL (8.5-10.1)
[2024-06-20 14:20] LABS: BLOOD UREA NITROGEN 22.6 mg/dL (7-18); MAGNESIUM 1.9 mg/dL (1.8-2.4)
[2024-06-20 14:23] LABS: CREATININE 1.3 mg/dL (0.55-1.3)
[2024-06-20 14:24] LABS: BILIRUBIN,TOTAL 0.4 mg/dL (0.2-1); TOT PROT 7.4 g/dl (6.4-8.2)
[2024-06-20] MEDS: OFLOXACIN 0.3% OTIC SOLUTION 5 ML BOTTLE AD ONE (15:47)
== END 2024-06-20 15:49 | disposition home or self-care (01) ==
LOC: JER 12:33
PROC: 3E033NZ Introduction of Analgesics, Hypnotics, Sedatives into Peripheral Vein, Percutaneous Approach (ICD-10-PCS; principal; 2024-06-20)
DX: H60.91 Unspecified otitis externa, right ear (principal); H92.01 Otalgia, right ear; R05.9 Cough, unspecified; R07.9 Chest pain, unspecified; Z20.822 Contact with and (suspected) exposure to COVID-19
CPT/HCPCS: 0241U-QW; 36415; 71045-TC-FY; 80053; 83735; 84484; 85025; 85610; 85730; 86850; 86900; 86901; 93005; 93010; 96374; 99285-25; J0131

== ENCOUNTER 2024-06-24 11:53 | Emergency (ER) | payer OTHER ==
[2024-06-24 12:03] VITALS: BMI 24.5
[2024-06-24] MEDS ORDERED: ACETAMINOPHEN INJECTION 100 ML ONE (14:35)
[2024-06-24] MEDS: ACETAMINOPHEN 1000 MG/100 ML BAG IVPB ONE (14:42)
[2024-06-24] MEDS ORDERED: PIPERACILLIN/TAZOB 3.375 GM 3.375 GM/50 ML BAG IVPB ONE (15:04)
[2024-06-24] MEDS: PIPERACILLIN/TAZOB 3.375 GM 3.375 GM in DEXTROSE 5%-WATER - 50 ML IVPB ONE (15:12)
[2024-06-24 15:13] LABS: BASO % 0.6 % (0-2.0); HEMOGLOBIN 12.8 GM/dL (10.7-15.3); LYMPH % 21.7 % (8-40); MCH 27.5 pg (25.7-33.7); MCHC 32.7 g/dl (32.0-36.0); MEAN CELL VOLUME 83.9 fl (80-96); MEAN PLT VOLUME 8.8 fl (7.5-11.1); NEUT % 70.7 % (42.8-82.8); PLATELET COUNT 301 10^3/uL (134-434); RBC 4.64 M/mm3 (3.60-5.2); RDW 15.8 % (11.6-15.6); WHITE BLOOD COUNT 9.4 K/mm3 (4.0-10.0)
[2024-06-24 15:22] LABS: INR 1.12 (0.83-1.09); PROTHROMBIN TIME (PATIENT) 12.6 SEC (9.7-13.0)
[2024-06-24 15:25] LABS: ACTIVATED PTT 27.7 SECONDS (25.2-36.5)
[2024-06-24 15:42] LABS: CHLORIDE 108 mmol/L (98-107); SODIUM 136 mmol/L (136-145)
[2024-06-24 15:44] LABS: ANION GAP 5 mmol/L (4-13); CALCIUM 9.9 mg/dL (8.5-10.1); CO2 24 mmol/L (21-32); POTASSIUM 7.1 mmol/L (3.5-5.1)
[2024-06-24 15:45] LABS: BLOOD UREA NITROGEN 23.8 mg/dL (7-18); GLUCOSE,RANDOM 99 mg/dL (74-106)
[2024-06-24 15:48] LABS: CREATININE 1.3 mg/dL (0.55-1.3); SGPT/ALT 29 U/L (13-61)
[2024-06-24 15:50] LABS: BILIRUBIN,TOTAL 0.6 mg/dL (0.2-1); TOT PROT 8.5 g/dl (6.4-8.2)
[2024-06-24 15:51] LABS: ALK PHOS 72 U/L (45-117)
[2024-06-24 15:54] LABS: SGOT/AST 91 U/L (15-37)
[2024-06-24] MEDS ORDERED: KETOROLAC TROMETHAMINE 15 MG/ML VIAL ONE (18:41)
[2024-06-24] MEDS: KETOROLAC TROMETHAMINE 15 MG/ML VIAL IVPUSH ONE (19:00)
[2024-06-24 20:07] VITALS: BP 213/93; PULSE 74; RESP 16; TEMP 98.4
[2024-06-24] MEDS ORDERED: amLODIPine BESYLATE 2.5 MG TABLET (FP) ONE (20:10)
[2024-06-24] MEDS: NEBIVOLOL 10 MG TABLET (FP) PO ONE (20:18)
[2024-06-24] MEDS: amLODIPine BESYLATE 2.5 MG TABLET (FP) PO ONE (20:18)
== END 2024-06-24 20:40 | disposition short-term general hospital (02) ==
LOC: JERFT 11:53 → JER 11:53
PROC: 3E03329 Introduction of Other Anti-infective into Peripheral Vein, Percutaneous Approach (ICD-10-PCS; principal; 2024-06-24)
PROC: 3E033NZ Introduction of Analgesics, Hypnotics, Sedatives into Peripheral Vein, Percutaneous Approach (ICD-10-PCS; 2024-06-24)
PROC: 3E0333Z Introduction of Anti-inflammatory into Peripheral Vein, Percutaneous Approach (ICD-10-PCS; 2024-06-24)
DX: H92.01 Otalgia, right ear (principal); H70.91 Unspecified mastoiditis, right ear; H66.91 Otitis media, unspecified, right ear; Z20.822 Contact with and (suspected) exposure to COVID-19
CPT/HCPCS: 36415; 70480-TC; 80053; 85025; 85610; 85730; 87040; 87635; 93005; 93010; 99285-25; J0131